=== PATIENT | male | born 1950 | race Caucasian/White ===

== ENCOUNTER 2018-07-21 11:31 | Inpatient (IN) ==
[2018-07-21] MEDS: NS 1,000 ML IV SCH (14:30)
[2018-07-21] MEDS: PROTONIX IV SCH (14:30)
[2018-07-21 14:49] LABS: INR 0.94; PROTIME 13.4 Seconds (11.0-16.0)
--- NOTE | 2018-07-21 14:49 | Diag Imaging Result Doc PS360 ---
EXAM: CHEST-2 VIEWS 07/21/2018 HISTORY: SOB TECHNIQUE: PA and lateral chest COMMENT: There is ill-defined opacity in the medial anterior left upper lobe. The heart size is slightly enlarged and the pulmonary vascularity is prominent. Compared to the previous study of 10/02/2014 this was not present previously. This is very suspicious for a central neoplasm with postobstructive pneumonia/pneumonitis. Further evaluation is recommended. IMPRESSION: Perihilar left upper lobe mass. Electronically signed by Oumar Aj 07/21/2018 2:46 PM
[2018-07-21 15:21] LABS: FREE T4 1.28 ng/dL (0.93-1.70)
--- NOTE | 2018-07-21 15:31 | EKG Report ---
Test Performed on : 07/21/2018 2:03:25 PM Test Reason : fast heart rate Blood Pressure : / mmHG Vent. Rate : 106 BPM Atrial Rate : 106 BPM P-R Int : 176 ms QRS Dur : 078 ms QT Int : 306 ms P-R-T Axes : 040 016 065 degrees QTc Int : 406 ms Sinus tachycardia. with occasional premature ventricular complexes. Otherwise normal ECG When compared with ECG of 03-OCT-2014 06:28, premature ventricular complexes. are now present Confirmed by Aki BILLY, Jamey ([id number]) on 07/21/2018 6:07:29 PM
[2018-07-21 15:47] LABS: HEMATOCRIT 35.7 % (42.0-52.0); HEMOGLOBIN 11.5 g/dL (14.0-18.0); MCH 29.5 PG (27-31); MCHC 32.2 g/dL (33-37); MCV 91.5 FL (81-99); MPV 9.5 FL (7.4-10.4); RBC 3.9 XMIL (4.7-6.1); RDW 14.7 % (11.5-14.5); WBC 10.65 X1000 (4.8-10.8)
[2018-07-21 15:51] LABS: ALB/GLOB RATIO 0.7; ALBUMIN 2.8 g/dL (3.5-5.0); CALCIUM 8.6 mg/dL (8.8-10.2); CREATININE 1.6 mg/dL (0.7-1.2); MAGNESIUM 1.9 mg/dL (1.5-2.7); POTASSIUM 5.6 mmol/L (3.5-5.1); TOTAL BILIRUBIN 0.24 mg/dL (0.20-1.00); TOTAL PROTEIN 6.8 g/dL (6.3-8.3); URIC ACID 9.4 mg/dL (3.4-7.0)
[2018-07-21] MEDS ORDERED: PROTONIX IV SCH (18:30)
[2018-07-21] MEDS ORDERED: SODIUM CHLORIDE 0.9% INJ SCH (18:30)
[2018-07-21] MEDS ORDERED: LOPRESSOR IV PRN (18:49)
--- NOTE | 2018-07-21 19:54 | Diag Imaging Result Doc PS360 ---
EXAM: CT THORAX W/O CONTRAST - 07/21/2018 HISTORY: lung mass TECHNIQUE: CT thorax without contrast. No contrast administered per request the referring provider. COMPARISON: Prior chest radiographs of 07/21/2018 FINDINGS: There is some limitation of detail due to the lack of administered intravenous contrast. There is a large mass which extends from the left hilum anteriorly and superiorly along the medial left upper lobe. This appears to directly invade the mediastinum. The mass measures 11.7 cm in AP dimension and varies in transverse dimension of two 5 cm. There is additional ill-defined infiltration versus postobstructive infiltrate at the left upper lobe. The mass also extends to the anterior medial pleural margin of the left upper lobe. In addition to the apparent direct mediastinal invasion, there are some small mediastinal lymph nodes. There there are emphysematous changes. The right lung appears clear except for mild dependent atelectasis. There is no substantial pleural effusion identified. There is no pneumothorax identified. Included sections of the upper abdomen show multiple small calcified gallstones in the gallbladder. There are atherosclerotic calcifications noted. There is soft tissue fullness at the left paraspinal region from T12-L1 to L1-2. While there is no associated bony destruction identified, the possibility of metastatic disease, which could invade the left side of the spinal canal, cannot be excluded. IMPRESSION: Large mass which extends from the left hilum anteriorly and superiorly along the medial left upper lobe. The mass appears to directly right mediastinum. There are some additional ill-defined infiltration or postobstructive infiltrate in the left upper lobe. These findings are highly suspicious for malignancy. Soft tissue fullness at left paraspinal region from T12-L1 through L1-2. The possibility of metastatic disease, which could invade the left side of the spinal canal, cannot be excluded. If further imaging evaluation is desired, MRI is recommended. This exam was performed using automated exposure control, adjustment of mA or kV according to patient size, and/or use of iterative reconstruction technique. Electronically signed by Tan Cannon 07/21/2018 7:52 PM
[2018-07-21] MEDS: ZOFRAN IV PRN (20:40)
[2018-07-21] MEDS: DILAUDID IV PRN (20:40)
[2018-07-21] MEDS: LOVENOX SUBQ SCH (20:43)
--- NOTE | 2018-07-21 22:20 | HISTORY AND PHYSICAL ---
CHIEF COMPLAINT: 1. Back pain. Not able to ambulate. 2. Weight loss. 3. Dehydration. HISTORY OF PRESENT ILLNESS: He is a a 67-year-old white male basically complaining for the last 2 months, back pain going to the groin, left. It is not worse with cough. X-rays lumbar spine were negative. He has peripheral arterial disease. He was placed on Pletal. In the meantime, patient was brought in and continues to deteriorate, dehydrated, not eating, significant weight loss. The patient denies of any cough, no headaches. Yesterday patient was very tachycardic. Denies of any chest pain. EKG showed sinus tach, nothing acute. Occasional PVCs. He was not able to getting out of the examination table, requiring assistance. He was very feeble. I decided to be admitted to the hospital yesterday. Apparently, there were no beds available. Family was given the options to go to [facility]. Were told the patient goes home when the bed is available, will call him for an admission. The patient came to the emergency room at 11 o'clock. He was still in the ER to be admitted. Unfortunately, he was in lot of pain. Tachycardic. He was given some IV pain medicine. Creatinine 1.6. Chest x-ray was abnormal with left hilar mass. Results discussed with the patient . Needs a further workup. For all these reasons, he has been hospitalized. Again, repeated questioning patient denies of any chest pain or shortness of breath or cough. PAST MEDICAL HISTORY: History of gallstones, chronic renal failure, diverticulosis, type 2 diabetes, hypertension, gout, hemorrhoids, sleep apnea, psoriatic rash, varicose veins in both legs, vitamin D deficiency. PAST SURGICAL HISTORY: Right hip replacement. MEDICINES: Aspirin, amlodipine 10 daily, Pletal 50 p.o. b.i.d. and Vasotec 20 mg p.o. b.i.d., vitamin D 50,000 units once a week. ALLERGIES: Reported here sulfa drugs. SOCIAL HISTORY: Is . Please go back and type. , for 2 children. Lives in [place]. Drinking alcohol on a daily basis. Smokes 2 packs a day for 40 years. FAMILY HISTORY: Father at the age of 78, lung cancer. Mom of dementia at 72. HEALTH MAINTENANCE: Declined flu shots, pneumococcal 2014, tetanus 2004, shingles 2013. Last prostate exam April 2018, colonoscopy [address] Carrion. REVIEW OF SYSTEMS: HEENT: No headache, no vision problems. No earache. No sore throat. Chest: No chest pain or shortness of breath. No palpitations. No cough. Gastrointestinal: Lack of appetite, weight loss with back pain going to the groin on the left side. Not able to walk. Claudication symptoms, decreased pulses and no weakness. Neurologic: No focal symptoms, headaches, seizures. PHYSICAL EXAMINATION: VITAL SIGNS: Temp is 98, tachycardic. Blood pressure 1/47/93. 5 feet 6 inches, 170 pounds. HEENT: Atraumatic, normocephalic. Pupils equal, react to light. NECK: Supple, no lymphadenopathy. CHEST: Poor air entry, tachycardic. ABDOMEN: Belly is soft, nontender. Good bowel sounds. Normal prostate. Heme- negative stool. He has chronic venous stasis changes in both legs. No obvious neurological deficits noted. LABS: CBC: White cell count 10, hematocrit 35, platelets 312,000. Sedimentation rate 45. PT/INR is normal. SMA-7: Sodium 130, potassium 5.6, chloride 100, BUN 30, creatinine 1.6, uric acid 9.4. LFTs slightly high. ProBNP 311. CEA level is high. B12, free T4 is normal. Chest x-ray, suspicious perihilar left upper lobe mass. The EKG is sinus tachycardia. ASSESSMENT AND PLAN: A 67-year-old white male admitted to the hospital with lack of appetite, weight loss associated with dehydration, deconditioning, tachycardic, and left- sided back pain going to the groin for the last few months. Previous x-rays were negative. 1. Dehydration. IV fluids. 2. Pain control, with Dilaudid. 3. Abnormal chest x-ray, left hilar mass. CT of the chest. Follow up on CEA that is high. 4. DVT/GI prophylaxis with Protonix and Lovenox respectively. 5. Insomnia, on Ambien. 6. Based on the CT, further recommendations will be followed. I did discuss with patient's based on the CT, will follow up on the further recommendations. cc: Henry Robertson MD [facility] LONG ISLANDAlphonso
[2018-07-21] MEDS: ULTRACET 37.5MG/325MG PO SCH (22:57)
[2018-07-22] MEDS: NS 1,000 ML IV SCH ×2 (02:54→14:58)
[2018-07-22] MEDS: DILAUDID IV PRN ×5 (05:50→20:57)
[2018-07-22 06:19] LABS: ALLEN TEST YES; BE -7.6 mmoll (-3.0-3.0); BLOOD TYPE ARTERIAL; HCO3-(ACT) 18.8 mmoll (20.0-26.0); METHB 1.5 % (0.0-1.5); O2(CT) 13.3 mL/dL (15.0-23.0); PCO2(98.6) 37 mmHg (35-45); PO2(98.6) 58 mmHg (60-100); SAMPLE BLOOD; SAO2 92.1 % (95.0-100.0); THB 10.6 g/dL (11.5-17.4)
[2018-07-22 06:21] LABS: MODALITY CANNULA; O2HB 89.3 % (95.0-99.0)
[2018-07-22 08:01] LABS: CALCIUM 8.1 mg/dL (8.8-10.2); CREATININE 1.3 mg/dL (0.7-1.2); POTASSIUM 5.9 mmol/L (3.5-5.1)
--- NOTE | 2018-07-22 08:49 | EKG Report ---
Test Performed on : 07/21/2018 6:04:48 PM Test Reason : ED. NO EKG ORDER FOR MUSE Blood Pressure : / mmHG Vent. Rate : 138 BPM Atrial Rate : 138 BPM P-R Int : 128 ms QRS Dur : 072 ms QT Int : 256 ms P-R-T Axes : 038 014 063 degrees QTc Int : 387 ms Sinus tachycardia. with premature atrial complexes. Otherwise normal ECG When compared with ECG of 21-JUL-2018 14:03, (Unconfirmed) premature ventricular complexes. are no longer present premature atrial complexes. are now present Unconfirmed Result
[2018-07-22] MEDS: ULTRACET 37.5MG/325MG PO SCH ×2 (08:54→20:59)
--- NOTE | 2018-07-22 12:48 | Diag Imaging Result Doc PS360 ---
EXAM: MRI BRAIN W/O CONTRAST 07/22/2018 HISTORY: Lung mass TECHNIQUE: T1 sagittal and axial, T2, FLAIR, DWI axial and coronal gradient echo. COMMENT: There are patchy areas of increased T2-weighted signal intensity in the periventricular white matter of both hemispheres. There is no evidence of bleed or abnormal extra-axial fluid collection. There is some artifact due to the patient's dental work. There is no evidence of restricted diffusion. No evidence of mass effect is present. IMPRESSION: Chronic ischemic microvascular changes. No definite evidence of metastatic disease. The sensitivity for such is diminished due to the lack of contrast however. Electronically signed by Oumar Aj 07/22/2018 12:46 PM
--- NOTE | 2018-07-22 12:59 | Diag Imaging Result Doc PS360 ---
EXAM: MRI THORACIC SPINE W/O CON 07/22/2018 HISTORY: Lung mass TECHNIQUE: T1-T2 and STIR sagittal, T1 and T2 axial. COMMENT: There is abnormal decreased T1-weighted signal intensity in C2 and the majority of the C1 arch. This involves the posterior elements of C2 as well. These findings are demonstrated on the sagittal images from the MRI of the brain performed today. The localizer sagittal image also demonstrates this abnormality. In addition, there is decreased T1-weighted signal intensity in the vertebral bodies of T3 on the left, the posterior T7 vertebral body, the upper endplate of T8 slightly on the left, the left side of T10, the right pedicle of T11, the anterior superior and right side of T12, and the entire L1 vertebral body including both pedicles and portions of the lamina. At the latter level there is some epidural mass which is not well demonstrated on the axial images. No definite intramedullary signal abnormalities are present. The possibility of compression or infiltration of the area of the cauda equina cannot be excluded. This will be further discussed with the lumbar spine examination. IMPRESSION: Numerous metastatic lesions in the cervical and thoracic spine as described above. Electronically signed by Oumar Aj 07/22/2018 12:57 PM
--- NOTE | 2018-07-22 13:06 | Diag Imaging Result Doc PS360 ---
EXAM: MRI LUMBAR SPINE W/O CONTRAST 07/22/2018 HISTORY: back pain TECHNIQUE: T1-T2 and STIR sagittal, T1 and T2 axial. COMMENT: There is abnormal decreased T1-weighted signal intensity throughout L1 including the posterior elements. This extends into the perivertebral soft tissues including the epidural space. The latter appears to compress the nerve roots exiting from the foramina as well as compressing the thecal sac on both sides. There is a small focus of decreased signal intensity in the superior posterior L2 vertebral body, in the upper endplate of L3, and large portions of the L5 vertebral body particularly on the left side also involving the left pedicle and posterior elements. At the L5 level there is also soft tissue component on the left side with epidural extension anteriorly. There are also extensive areas of metastatic disease in the sacrum and iliac bones adjacent to the sacroiliac joints. There appears to be some invasion of the caudal sacral canal. IMPRESSION: Extensive metastatic disease, particularly at L1 where there is compression of the thecal sac due to epidural disease. Electronically signed by Oumar Aj 07/22/2018 1:03 PM
[2018-07-22] MEDS: SODIUM CHLORIDE 0.9% INJ SCH (14:52)
[2018-07-22] MEDS: PROTONIX IV SCH (14:52)
--- NOTE | 2018-07-22 16:43 | PROGRESS NOTE ---
DATE: 07/22/2018 SUBJECT: Finally patient got a bed and still tachycardic. No chest pain. Complains of intractable back pain going to the groin for the last few weeks. He also lost appetite, weight loss. I did review the CT of the chest with Dr. Aj. He can able to get the biopsy on Wednesday. The patient has been scheduled for MRI of the brain, thoracic spine and L-spine. EXAM: Temperature is 98 degrees, pulse is 100. He is on 90% on room air on 2 L.HEENT: Within normal limits. Neck: Supple. Scattered wheezing. Heart: Sounds are regular. Belly: Is soft, nontender. No obvious deficits noted. LABS: ABG, pH is 7.30, pCO2 37, PO2 58 on 28%. SMA 7 sodium 139, potassium 5.9, chloride 105, BUN 26, creatinine 1.3, elevated CEA level. ASSESSMENT: 1. Intractable back pain due to L1 lesion epidura mass pressing by MRI of lumbar spine. 2. Left upper lobe mass suspicious for malignancy. Elevated CEA. 3. Dehydration on intravenous fluids. 4. Multiple metastatic disease in thoracic spine. 5. MRI of the brain is negative. PLAN: 1. IV fluids. 2. IV Decadron. 3. Tissue diagnosis will schedule on Wednesday morning by radiologist anteriorly. 4. DVT, GI prophylaxis and Ambien for sleeping and I am going to discuss with his and then continue present treatment. LEVEL OF DOCUMENTATION: 25 minutes. cc: Henry Robertson MD MTDD
[2018-07-22] MEDS: DECADRON IV SCH (17:25)
[2018-07-22] MEDS: LOVENOX SUBQ SCH (17:29)
[2018-07-23] MEDS: DILAUDID IV PRN ×2 (01:05→20:03)
[2018-07-23] MEDS: DECADRON IV SCH ×3 (01:05→16:35)
[2018-07-23] MEDS: AMBIEN PO PRN (01:13)
[2018-07-23] MEDS: NS 1,000 ML IV SCH ×3 (04:19→16:36)
[2018-07-23] MEDS: ULTRACET 37.5MG/325MG PO SCH ×2 (09:52→19:53)
[2018-07-23] MEDS ORDERED: KAYEXALATE PO ONE (10:57)
--- NOTE | 2018-07-23 11:48 | PROGRESS NOTE ---
DATE: 07/23/2018 SUBJECTIVE: The patient states he is feeling reasonably well. Denies particular pain presently. Objective: Vital Signs: Afebrile. Vital signs stable. CV: RRR. Lungs: Distant breath sounds CTA. Abdomen: Soft, nontender. Extremities: Mild prominence to the right calf area. No definite cord. Left lower extremity with no edema. Neurologic: Cranial nerves are intact. No focal deficits X-RAYS: Reviewed copies of the MRI of the LS-spine, T-spine revealing cervical, thoracic, and lumbar metastasis. Also, CT chest reveals left hilar mass, large, with plans for biopsy per Radiology on 07/25/2018. ASSESSMENT: 1. Intractable lumbar back pain, improved overall. 2. Left upper lung mass, likely lung carcinoma with metastasis to the spine. 3. Dehydration. 4. Hyperkalemia. 5. Diverticulosis. 6. Hypertension. PLAN: Due to hyperkalemia, we will stop the TERESO inhibitor in the form of Vasotec. Continue Norvasc. Lopressor has been ordered as needed. Continue low-dose IV fluids of course without potassium. We will give him 1 dose of Kayexalate. We will continue low IV hydration. Leave him off the Pletal, but continue his Norvasc, vitamin D. Continue to monitor renal function closely. He is on prophylactic dose of Lovenox and will continue that. Await biopsy of lung mass in 2 days. cc: MD Henry Grady MD
[2018-07-23] MEDS ORDERED: ENALAPRIL MALEATE 20 MG PO SCH (13:00)
[2018-07-23] MEDS: SODIUM CHLORIDE 0.9% INJ SCH (13:57)
[2018-07-23] MEDS: PROTONIX IV SCH (13:57)
[2018-07-23] MEDS: LOVENOX SUBQ SCH (18:11)
[2018-07-24] MEDS: ULTRACET 37.5MG/325MG PO SCH ×3 (01:26→20:29)
[2018-07-24] MEDS: DECADRON IV SCH ×4 (02:15→22:07)
[2018-07-24] MEDS: DILAUDID IV PRN ×5 (02:15→22:06)
[2018-07-24 07:42] LABS: HEMATOCRIT 31.2 % (42.0-52.0); HEMOGLOBIN 9.8 g/dL (14.0-18.0); IMM GRAN# 0.06 X1000 (0.0-0.04); IMM GRAN% 0.6 % (0.0-0.5); LYMPH# 0.28 X1000 (1.2-3.4); LYMPH% 2.6 % (20.5-51.1); MCH 29.3 PG (27-31); MCHC 31.4 g/dL (33-37); MCV 93.4 FL (81-99); MONO# 1.16 X1000 (0.11-0.59); MPV 9.1 FL (7.4-10.4); NEUT# 9.07 X1000 (1.4-6.5); NEUT% 85.8 % (42.2-75.2); PLT 276 X1000 (130-400); RBC 3.34 XMIL (4.7-6.1); RDW 14.5 % (11.5-14.5); WBC 10.57 X1000 (4.8-10.8)
[2018-07-24 07:49] LABS: CALCIUM 8.5 mg/dL (8.8-10.2); CREATININE 1.4 mg/dL (0.7-1.2)
[2018-07-24 07:53] LABS: POTASSIUM 5.1 mmol/L (3.5-5.1)
[2018-07-24 08:31] LABS: BANDS 2 % (0-1); LYMPHS 6 % (21-51); MONO 2 % (1-9); SEGS 90 % (42-75)
[2018-07-24] MEDS: NORVASC PO SCH (08:40)
[2018-07-24] MEDS ORDERED: DULCOLAX PR PRN (10:59)
--- NOTE | 2018-07-24 11:14 | PROGRESS NOTE ---
DATE: 07/24/2018 SUBJECTIVE: Patient remains stable. Pain is controlled with some Dilaudid. He is having some constipation. OBJECTIVE: Afebrile, pulse 97, respirations 18, blood pressure 159/80, O2 saturation on 2 L is 98%. CV: RRR. Lungs: Distant breath sounds. CTA. Abdomen: Soft. Active bowel sounds. Mild distention. No point tenderness. Extremities: Mild tenderness along the right calf. No major lower extremity edema. Neurologic: Nonfocal. Cranial nerves are intact. Sodium 139, potassium down from 5.9 yesterday to 5.1 after Kayexalate, BUN 35, creatinine 1.4. White count 10.5, hemoglobin 9.8, platelets 276,000. ASSESSMENT: 1. Intractable lumbar pain with findings on MRI suspicious for metastasis. 2. Left upper lung mass, rule out lung cancer with metastasis to the spine. 3. Dehydration, improved. 4. Hyperkalemia, improved. 5. Diverticulosis. 6. Hypertension, off TERESO inhibitor due to hyperkalemia. 7. Constipation, likely related to the pain medications. PLAN: We will add laxative daily. Continue Norvasc. Continue low-dose IV fluids. Monitor potassium off the TERESO inhibitor. Hold the Lovenox presently as he has CT-guided biopsies planned for tomorrow and he is off his Pletal currently. We will check a venous Doppler of the right lower extremity tomorrow as well. He remains on IV steroids and he is receiving pain control with Dilaudid and Ultram as required. cc: MD Henry Grady MD
[2018-07-24] MEDS: NS 1,000 ML IV SCH (12:10)
[2018-07-24] MEDS: MIRALAX PO SCH ×2 (12:10→22:06)
[2018-07-24] MEDS: SODIUM CHLORIDE 0.9% INJ SCH (13:47)
[2018-07-24] MEDS: PROTONIX IV SCH (13:47)
[2018-07-24] MEDS: ZOFRAN IV PRN (13:53)
[2018-07-24] MEDS: AMBIEN PO PRN (22:06)
[2018-07-25] MEDS: DECADRON IV SCH ×3 (04:22→18:17)
[2018-07-25 07:41] LABS: INR 0.97; PROTIME 13.6 Seconds (11.0-16.0)
[2018-07-25] MEDS: DILAUDID IV PRN ×3 (08:45→21:18)
--- NOTE | 2018-07-25 10:58 | Diag Imaging Result Doc PS360 ---
CHEST-2 VIEWS - 07/25/2018 INDICATION: POST BIOPSY LEFT LUNG COMPARISON: 07/21/2018 FINDINGS: There is no visible pneumothorax. IMPRESSION: No pneumothorax. Electronically signed by Tanvir Olvera 07/25/2018 10:55 AM
[2018-07-25] MEDS: NORVASC PO SCH (11:34)
[2018-07-25] MEDS: MIRALAX PO SCH (11:34)
[2018-07-25] MEDS: VITAMIN D PO SCH (11:34)
[2018-07-25] MEDS: ULTRACET 37.5MG/325MG PO SCH (11:36)
[2018-07-25] MEDS ORDERED: CALMOSEPTINE OINTMENT TOP PRN (11:57)
[2018-07-25] MEDS: PROTONIX IV SCH (14:23)
--- NOTE | 2018-07-25 15:03 | Diag Imaging Result Doc PS360 ---
CHEST-2 VIEWS - 07/25/2018 2:51 PM INDICATION: S/P CT guided left lung biopsy COMPARISON: 10:55 AM FINDINGS: There is no pneumothorax. IMPRESSION: No pneumothorax. Electronically signed by Tanvir Olvera 07/25/2018 3:01 PM
--- NOTE | 2018-07-25 15:37 | Diag Imaging Result Doc PS360 ---
CT GUIDED BIOPSY LUNG - 07/25/2018 INDICATION: Left lung upper lobe mass. TECHNIQUE: The risks and benefits of the procedure were discussed with the patient. All questions were answered. Written and verbal informed consent was obtained. Overlying skin was prepped and draped in sterile fashion. Anesthesia was achieved with injection of 10 cc of 1% lidocaine. COMPARISON: 07/21/2017 FINDINGS: The left upper lobe opacification was biopsied anteriorly. Six biopsy specimens were obtained. The needles were withdrawn intact. The patient reported no symptoms from the procedure. Postprocedural chest x-rays were unremarkable. IMPRESSION: Successful and uncomplicated CT-guided biopsy of opacified left upper lobe. Electronically signed by Tanvir Olvera 07/25/2018 3:34 PM
[2018-07-25] MEDS: NS 1,000 ML IV SCH (18:19)
--- NOTE | 2018-07-25 21:20 | PROGRESS NOTE ---
DATE: 07/25/2018 SUBJECTIVE: This morning, the patient has had difficulty getting IV access and waiting for biopsy. I discussed with Dr. Marin his plan to do CT-guided biopsy. Family was at bedside. He complains of constipation. Eating well. Pain is better and no obvious weakness. OBJECTIVE: Vital Signs: Temperature is 97 degrees, pulse is 95, blood pressure is 132/84. HEENT: Within normal limits. Neck: Supple. Chest: Bilateral air entry. Heart: Sounds are regular, tachycardic. Abdomen: Belly is soft, nontender. Extremities: Chronic venous stasis changes noted in both legs. Neurologic: No obvious deficits noted. INVESTIGATIONS: INR is normal, not reported. ASSESSMENT AND PLAN: 1. Poor intravenous access. Will attempt intravenous access for pain control and intravenous steroids. 2. If intravenous access is problematic, consider Port-A-Cath or peripherally inserted central catheter line. 3. Repeat the labs, CBC and CMP, in the morning. 4. Follow up on the biopsies CT-guided this morning. 5. Deep vein thrombosis prophylaxis. 6. Constipation, MiraLAX. 7. Continue intravenous steroids. 8. I have seen the patient twice; came back in the evening. Biopsy was done. No complications. I am going to discuss with Dr. Patino for a tissue diagnosis. 9. L1 lesion, needs further treatment besides intravenous steroids. Also consult oncologist on- call and consider physical therapy consult for ambulation. LEVEL OF DOCUMENTATION: 35 minutes. cc: Henry Robertson MD
[2018-07-26] MEDS: ULTRACET 37.5MG/325MG PO SCH ×3 (00:02→22:13)
[2018-07-26] MEDS: MIRALAX PO SCH ×3 (00:03→22:11)
[2018-07-26] MEDS: DILAUDID IV PRN ×4 (00:18→22:19)
[2018-07-26] MEDS: AMBIEN PO PRN (00:19)
[2018-07-26] MEDS: DECADRON IV SCH ×3 (00:38→18:02)
[2018-07-26 07:51] LABS: HEMATOCRIT 34.2 % (42.0-52.0); IMM GRAN# 0.07 X1000 (0.0-0.04); IMM GRAN% 0.7 % (0.0-0.5); LYMPH# 0.42 X1000 (1.2-3.4); MCH 29.5 PG (27-31); MCHC 32.2 g/dL (33-37); MCV 91.7 FL (81-99); MONO# 1.07 X1000 (0.11-0.59); MONO% 10.2 % (1.7-9.3); MPV 9.1 FL (7.4-10.4); NEUT# 8.88 X1000 (1.4-6.5); NEUT% 85.1 % (42.2-75.2); PLT 312 X1000 (130-400); RBC 3.73 XMIL (4.7-6.1); RDW 14.3 % (11.5-14.5); WBC 10.44 X1000 (4.8-10.8)
[2018-07-26 08:19] LABS: AGAP 8; BUN 37 mg/dL (8-22); CALCIUM 8.4 mg/dL (8.8-10.2); CHLORIDE 103 mmol/L (98-107); COSMO 282; CREATININE 1.1 mg/dL (0.7-1.2); ESTIMATED GFR > 60; GLUCOSE 121 mg/dL (70-104); POTASSIUM 5.1 mmol/L (3.5-5.1); SODIUM 136 mmol/L (136-145); TCO2 25 mmol/L (25-35)
[2018-07-26 08:37] LABS: BANDS 2 % (0-1); LYMPHS 2 % (21-51); MONO 4 % (1-9); SEGS 88 % (42-75)
[2018-07-26] MEDS: LOVENOX SUBQ SCH (09:39)
[2018-07-26] MEDS: NORVASC PO SCH (09:39)
--- NOTE | 2018-07-26 12:21 | HEMO/ONC CONSULTATION ---
DATE: 07/26/2018 CHIEF COMPLAINT: We were consulted for further evaluation and management of patient's new lung mass. HISTORY OF PRESENT ILLNESS: Mr. De La Cruz is a 67-year-old male who was admitted after having increased amounts of back pain over the past couple of months. The pain can continue to increase. The patient finally got to the point where he was having trouble getting up and moving around. He had a significant weight loss, not eating well, very dehydrated. The patient denies any coughs. No headaches. The patient had a chest x-ray did show an abnormal left hilar mass. The patient also had a CT of the chest that showed a large mass that extends from the left hilum anteriorly and superomedially on the medial left upper lobe. The patient also had some MRIs of the spine that showed likely metastasis at that time. Brain MRI did not show any metastatic disease at this time. The patient did undergo a CT-guided lung biopsy on 07/25/2018, awaiting pathology results at this time. PAST MEDICAL HISTORY: Gallstones, diverticulosis, type 2 diabetes mellitus, hypertension, gout, hemorrhoids, sleep apnea, psoriatic rash, varicose veins in both legs and vitamin D deficiency. PAST SURGICAL HISTORY: Right hip replacement. SOCIAL HISTORY: Smokes 2 packs a day for the past 40 years. Drinks alcohol on occasion. Denies any illicit drug use. FAMILY HISTORY: Lung cancer, dementia. ALLERGIES: Sulfa drugs. HOME MEDICATIONS: Aspirin, amlodipine, Pletal, Vasotec, vitamin D. REVIEW OF SYSTEMS: Negative unless mentioned in HPI. PHYSICAL EXAMINATION: Vital Signs: Temperature 97.6 degrees, heart rate 101, respiratory rate 18, blood pressure 163/92, saturating 93% on nasal cannula. General: Patient is awake, lying in bed, no acute distress noted. HEENT: Anicteric. Pupils PERRLA. Mucous membranes and moist. Neck: Supple. Trachea midline. No JVD. Lymph node survey: No palpable lymphadenopathy. Chest: Bilateral breath sounds diminished bilaterally. Cardiovascular: S1, S2. Increased rate and rhythm. Abdomen: Soft, nontender. Bowel sounds present in all 4 quadrants. Skin: Warm, dry, and intact. No petechiae, no clubbing, no rashes, cyanosis. Neurologic: Alert and oriented x3. No focal deficits noted. LABORATORY DATA: White cell count 10.44, hemoglobin 10.2, hematocrit 34.2, platelets are 312,000. Potassium 5.1, BUN 37, creatinine 1.1. CEA was 10. RADIOLOGY RESULTS: CTA chest showed a large mass which extends from the left hilum anteriorly and superiorly on the medial left upper lobe. The mass appears to drape the right mediastinum. There is some additional ill-defined infiltration for postobstructive infiltrate in the left upper lobe since the findings are highly suspicious for malignancy. Brain MRI showed chronic ischemic microvascular changes noted. No definite evidence of metastatic disease. Lumbar spine MRI shows extensive metastatic disease particularly at L1 where with compression of the thecal sac due to epidural disease. Thoracic spine MRI shows numerous metastatic lesions of the thoracic spine. ASSESSMENT AND PLAN: 1. Metastatic lung mass: Pathology results pending at this time. Patient underwent CT-guided lung biopsy yesterday. Plan is to get pathology results we will make further recommendations. At this time, continue to monitor. Also consult Dr. Ferraro. 2. Dehydration: Improving. Continue management per medical team. 3. Deep venous thrombosis prophylaxis: Continue Lovenox daily as ordered. 4. Supportive care: Continue to have patient get out of bed as much as possible. 5. Protein shakes 3 times a day. Dictated by SAEID Godoy for Nikos Dukes MD Patient seen and examined. As above. Patient with metastatic non-small cell carcinoma. I discussed his disease status and prognosis. I will consult radiation oncology for a spinal metastasis with epidural involvement. He is somewhat reluctant to therapy. He understands that his is causing his numbness in his right foot. Currently he does not have bowel or bladder symptoms. After that we will plan further management accordingly. Nikos Dukes M.D. cc: MD Henry Fonseca MD [facility]
--- NOTE | 2018-07-26 14:36 | Extremity Venous Study ---
PROCEDURE NAME: Venous U/S Right Leg - 07/25/2018 REQUESTING PHYSICIAN: Dr. Sheriff. OIL WELL SHOOTER: Dima. INDICATIONS: Pain. EQUIPMENT: [employer] Vivid E9 ultrasound system with a 9 L-D transducer. FINDINGS: Images of the right lower extremity venous system with comparison shot of the left common femoral vein were obtained in both sagittal and transverse planes. Doppler was used to evaluate veins for spontaneity, phasicity, respiratory excursion, and digital augmentation. RESULTS: Normal venous compression and normal venous flow. No obvious superficial or deep venous thrombosis noted. cc: MD Milton Diop MD Jagan Reddy, MD
[2018-07-26] MEDS: PROTONIX IV SCH (14:41)
[2018-07-26] MEDS ORDERED: TUMS PO PRN (19:38)
--- NOTE | 2018-07-26 21:40 | PROGRESS NOTE ---
DATE: 07/26/2018 SUBJECTIVE: The patient is out of the bed and eating better. No bowel movement. No complaints. REVIEW OF SYSTEMS: Some weakness in the right leg. OBJECTIVE: Vital signs: Temperature is 97.6, pulse is 94, blood pressure is 140/85. HEENT Exam: Within normal limits. Chest: Bilateral air entry. Cardiovascular: Heart sounds are tachycardic. Abdomen: Belly is soft, nontender. Extremities: Chronic venous stasis changes noted. INVESTIGATIONS: White cell count 10.4, hematocrit 34, platelets 312,000. BMP: Sodium 136, potassium 5.1, chloride 103, BUN 37, creatinine 1.1. ASSESSMENT AND PLAN: 1. Biopsy reported came back non-small cell lung cancer, presumed to be adenocarcinoma, primary lung. 2. Metastatic disease at L1. 3. Back pain with weakness in the legs, probably due to metastatic disease. PLAN: 1. IV Decadron. 2. Consult with Dr. Dukes. 3. Consult with Dr. Orlando for port tomorrow. 4. I spoke to the patient as well as the . They are agreeable for Port-A-Cath and radiation therapy. I will communicate with Dr. Dukes, and he is not interested in chemotherapy at this time. I think he needs further workup. 5. Continue pain management as described. 6. Hypertension on amlodipine 10 daily and metoprolol as needed. 7. Deep venous thrombosis and gastrointestinal prophylaxis as directed and Ambien for sleep. LEVEL OF DOCUMENTATION: 25 minutes. cc: Henry Robertson MD
[2018-07-26] MEDS: NS 1,000 ML IV SCH (22:24)
[2018-07-27] MEDS: AMBIEN PO PRN ×2 (01:16→23:49)
[2018-07-27] MEDS: DECADRON IV SCH ×3 (01:16→16:38)
[2018-07-27] MEDS: DILAUDID IV PRN ×4 (06:18→23:33)
--- NOTE | 2018-07-27 06:52 | GENERAL SURGERY CONSULTATION ---
DATE: 07/27/2018 CHIEF COMPLAINT: Metastatic lung cancer. HISTORY: This is a 67-year-old gentleman with fairly severe back pain who has been worked up and found to have a left hilar lung mass. Biopsy proven to be non-small cell carcinoma. He also has evidence of skeletal metastases. I have been asked to place a port for IV access. He is anticipating radiation to his skeletal mets and possibly his lung. PAST MEDICAL HISTORY: His other medical problems include chronic renal insufficiency, diverticulosis, type 2 diabetes, hypertension, sleep apnea, venous insufficiency. PAST SURGICAL HISTORY: Previous surgery includes right hip replacement. MEDICATIONS INCLUDE: Aspirin, amlodipine, Pletal, Vasotec, and vitamin D. ALLERGIES: He is allergic to sulfa. SOCIAL HISTORY: He is . Drinks alcohol daily. Smokes 2 packs a day. FAMILY HISTORY: Pertinent for lung cancer and dementia. REVIEW OF SYSTEMS: Primarily positive for back pain. EXAMINATION: Vital signs: He is afebrile, heart rate 91, blood pressure 138/79. Lungs: Bilateral breath sounds. Heart: Regular rate and rhythm. No clavicular distortion. Abdomen: Soft. He has chronic venous stasis changes of his lower legs. Neurologic: He is awake and alert. Skin: Rash is noted. ASSESSMENT: Metastatic lung cancer. PLAN: Right-sided port. I have discussed the plan with him. He understands and agrees to proceed. cc: MD Henry Meeks MD
[2018-07-27] MEDS: ULTRACET 37.5MG/325MG PO SCH ×2 (10:04→23:51)
--- NOTE | 2018-07-27 11:49 | HEMO/ONC PROGRESS NOTE ---
DATE: 07/27/2018 SUBJECTIVE: The patient continues to have increased amounts of pain to his back. The patient says he slightly feels better, though. The patient continues to have some weakness and numbness to the right leg. No other new complaints at this time. OBJECTIVE: Vital Signs: Temperature 98.1 degrees, heart rate 71, respiratory rate 18, blood pressure 114/65, saturating 95% on nasal cannula. General: Patient is awake, lying in bed, no acute distress noted. HEENT: Anicteric. Pupils: PERRLA. Mucous membrane moist. Cardiovascular: S1, S2. Regular rate and rhythm. Chest: Bilateral breath sounds clear to auscultation. Abdomen: Soft, nontender. Bowel sounds present in all 4 quadrants. Neurologic: Alert and oriented x3. No focal deficits noted. LABORATORY DATA: White blood cell count 10.44, hemoglobin 11.0, hematocrit 34.2, platelets are 312. Potassium 5.1, BUN 37, creatinine 1.1, calcium 8.4. ASSESSMENT AND PLAN: 1. Metastatic non-small cell adenocarcinoma of the lung: The patient wanted to discuss further therapy at this time. Dr. Ferraro has been consulted. We will continue to monitor and make further recommendations. 2. Back pain with weakness and numbness to right leg and lower extremity: Dr. Ferraro has been consulted for further evaluation and radiation. The patient was kind of reluctant to do therapy. The patient now willing to discuss possible treatment. Continue to monitor. 3. Dehydration: Improving slowly. Continue management per primary medical team. 4. Deep venous thrombosis prophylaxis: Continue Lovenox daily as ordered. 5. Supportive care: Continue protein shakes 3 times a day. Dictated by SAEID Godoy for Nikos Dukes MD Patient seen and examined. As above. No new complaints. Patient agreeable with radiation at this time. Discussed with Dr. Ferraro. Patient also scheduled for a Port-A-Cath. Plan for PET scan outpatient. Nikos Dukes M.D. cc: MD Henry Fonseca MD MTDD
[2018-07-27] MEDS ORDERED: DIPRIVAN 1% ONE (13:41)
[2018-07-27] MEDS ORDERED: XYLOCAINE-MPF 2% ONE (13:41)
[2018-07-27] MEDS ORDERED: XYLOCAINE 1%/EPI 1:100,000 ONE (14:25)
[2018-07-27] MEDS ORDERED: NS 250 ML ONE (14:26)
[2018-07-27] MEDS ORDERED: KEFZOL 1 GM/D5W 1 GM/50 ML IVPB ONE (14:32)
[2018-07-27] MEDS: KEFZOL 1 GM/D5W 1 GM/50 ML IVPB IV ONE (14:40)
[2018-07-27] MEDS ORDERED: KEFZOL ONE (14:57)
--- NOTE | 2018-07-27 15:44 | OPERATIVE NOTE ---
PROCEDURE DATE: 07/27/2018 PROCEDURE PERFORMED: Right subclavian port placement. SURGEON: Fidel Orlando MD. [employer] SUPERVISOR: VERITO Mario PREOPERATIVE DIAGNOSIS: Metastatic lung cancer. POSTOPERATIVE DIAGNOSIS: Metastatic lung cancer. DESCRIPTION OF PROCEDURE: Satisfactory monitoring anesthesia care was established. IV sedation was accomplished. The right upper anterior chest and neck were prepped and draped in a sterile fashion. We anesthetized the skin with 1% lidocaine with epinephrine in the deltopectoral groove. We incised the skin, developed subcutaneous pocket that would admit the port. We then accessed the right subclavian vein and passed the guidewire under fluoroscopic guidance into the superior vena cava. We then passed the dilator and introducer sheath over the guidewire. We introduced the polyurethane catheter over the wire into the superior vena cava to the junction of the right atrium. We cut the catheter to the appropriate length, passed it on to the stem of the port, and then locked it into position. We placed the port within the pocket. We secured it there with a silk. We passed it through the subcutaneous tissue in the rim of the port. We irrigated out the port with Kefzol-impregnated saline. We then placed 3-0 Polysorb in the subcutaneous tissue. We accessed the port. It aspirated and irrigated easily. We gave the patient 4 mL of Hep-Lock. We then closed the skin with a 4 Polysorb subcuticular stitch. Telfa and sterile OpSite was applied. He tolerated it well. He was sent to the recovery room in satisfactory condition. cc: MD Henry Meeks MD
[2018-07-27] MEDS: PROTONIX IV SCH (16:38)
[2018-07-27] MEDS: NORVASC PO SCH (19:08)
[2018-07-27] MEDS: MIRALAX PO SCH (19:08)
[2018-07-27] MEDS: LOVENOX SUBQ SCH (19:09)
[2018-07-27] MEDS: NS 1,000 ML IV SCH (19:09)
--- NOTE | 2018-07-27 21:02 | PROGRESS NOTE ---
DATE: 07/27/2018 SUBJECTIVE: The patient is doing better. He has agreed for a port as well as radiation therapy. EXAMINATION: Vitals: Stable. HEENT: Within normal limits. Chest: Clear. Heart: Heart sounds are tachycardic. Abdomen: Belly is soft, nontender. No obvious deficits noted. INVESTIGATIONS: Extremity venous study: No DVT noted. Chest x-ray: No pneumothorax. ASSESSMENT AND PLAN: 1. Waiting for port by Dr. Orlando. 2. Metastatic lung cancer. 3. Intravenous steroids, on L1 lesion. 4. I spoke to Dr. Dukes. He is going to communicate with Dr. Ferraro for radiation therapy. 5. Hypertension is stable. 6. Continue Lovenox for DVT prophylaxis. 7. Out of the bed with physical therapy. LEVEL OF DOCUMENTATION: 25 minutes. cc: Henry Robertson MD
[2018-07-28] MEDS: MIRALAX PO SCH ×3 (03:21→20:58)
[2018-07-28] MEDS: DECADRON IV SCH ×3 (03:22→18:39)
[2018-07-28] MEDS: DILAUDID IV PRN ×4 (06:03→20:57)
[2018-07-28] MEDS: NS 1,000 ML IV SCH (06:07)
[2018-07-28] MEDS: LOVENOX SUBQ SCH (08:51)
[2018-07-28] MEDS: NORVASC PO SCH (08:52)
[2018-07-28] MEDS: ULTRACET 37.5MG/325MG PO SCH ×2 (08:52→20:58)
[2018-07-28] MEDS: CLINIMIX E 4.25%-5% SOLUTION 1,000 ML IV SCH (09:01)
--- NOTE | 2018-07-28 10:10 | HEMO/ONC PROGRESS NOTE ---
DATE: 07/28/2018 SUBJECTIVE: Patient is slightly feeling better at this time. Pain is improving. The patient had Port-A-Cath placed yesterday. No new complaints at this time. OBJECTIVE: Vital Signs: Temperature 97.6 degrees, heart rate 107, respiratory rate 18, blood pressure 173/98, saturating 98% on room air. General: Patient is awake, lying in bed. No acute distress noted. HEENT: Anicteric. Pupils: PERRLA. Mucous membranes appear to be moist. Cardiovascular: S1, S2, regular rate and rhythm. Chest: Bilateral breath sounds clear to auscultation. Abdomen: Soft, nontender. Bowel sounds present in all 4 quadrants. Neurologic: Alert and oriented x3. DIAGNOSTIC STUDIES: No new labs at this time. ASSESSMENT AND PLAN: 1. Metastatic adenocarcinoma of the lung: Dr. Ferraro has been consulted for radiation. Port-A-Cath has been placed. Once patient is discharged, we can discuss further treatments for chemotherapy. Continue to monitor. 2. Back pain with weakness and unsteady right leg and lower extremity: Dr. Ferraro consulted for radiation. Continue to monitor. 3. Deep venous thrombosis prophylaxis. Continue Lovenox as ordered. 4. Supportive care: Protein shakes 3 times a day. Plan of care discussed with Dr. Dukes. Dictated by SAEID Godoy for Nikos Dukes MD Patient seen and examined. As above. Status post Port-A-Cath. Proceed with radiation with Dr. Ferraro to his lower back. Follow-up in the clinic after discharge for further management. Nikos Dukes M.D. [facility]
[2018-07-28] MEDS: PROTONIX IV SCH (14:46)
[2018-07-28] MEDS: SODIUM CHLORIDE 0.9% INJ SCH (14:46)
--- NOTE | 2018-07-28 19:42 | PROGRESS NOTE ---
DATE: 07/28/2018 SUBJECTIVE: The patient had a port placed and waiting for radiation. EXAMINATION: Vital Signs: Temperature is 98. Vitals are stable. Port on the right side. Chest: Clear. Heart: Heart sounds are regular. Abdomen: Belly is soft, nontender. Neurologic: No obvious deficits. ASSESSMENT: 1. 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 2. Intractable back pain at the L1 lesion. PLAN: 1. IV steroids. 2. Waiting for radiation. 3. Physical therapy. 4. Blood pressure is under control. 5. Change the IV fluids to Clinimix to the Port-A-Cath. 6. Follow up DVT prophylaxis with Lovenox. LEVEL OF DOCUMENTATION: Level of documentation 25 minutes. cc: Henry Robertson MD
[2018-07-28] MEDS: KEFZOL 1 GM/D5W 1 GM/50 ML IVPB IV ONE (19:58)
[2018-07-28] MEDS: AMBIEN PO PRN (20:58)
[2018-07-29] MEDS: DECADRON IV SCH ×3 (01:13→17:00)
[2018-07-29] MEDS: CLINIMIX E 4.25%-5% SOLUTION 1,000 ML IV SCH ×2 (03:00→04:11)
[2018-07-29] MEDS: DILAUDID IV PRN ×4 (06:45→20:35)
[2018-07-29] MEDS: ULTRACET 37.5MG/325MG PO SCH ×3 (10:24→21:40)
[2018-07-29] MEDS: MIRALAX PO SCH ×2 (10:25→20:37)
[2018-07-29] MEDS: LOVENOX SUBQ SCH (10:25)
[2018-07-29] MEDS: NORVASC PO SCH (10:25)
[2018-07-29] MEDS: SODIUM CHLORIDE 0.9% INJ SCH (14:24)
[2018-07-29] MEDS: PROTONIX IV SCH (14:24)
--- NOTE | 2018-07-29 16:34 | PROGRESS NOTE ---
DATE: 07/29/2018 SUBJECTIVE: The patient is out of the bed. His pain is 7 out of 10. The patient went to simulation for radiation to the back. PHYSICAL EXAMINATION: Temperature 97 degrees, pulse is 109, blood pressure 128/74.Chest: Bilateral air entry. Heart: Heart sounds are regular, tachycardia. Abdomen: Belly is soft, nontender. No peripheral edema. Neurologic: No obvious deficits noted. INVESTIGATIONS: None reported. ASSESSMENT AND PLAN: 1. Metastatic non-small cell squamous cell cancer. 2. L1 metastatic disease with pain. 3. Dehydration status post port on the right side by Dr. Orlando. Plan is to continue IV Clinimix. Continue IV steroids. DVT and GI prophylaxis as per order sheet. Pain control with Dilaudid since it is 7 out of 10. Out of the bed with physical therapy. Radiation as planned by Dr. Ferraro. I discussed with the patient this morning if the pain is adequately controlled, he is able to ambulate, and the family can go as an outpatient for radiation therapy, at that point he will be discharged home and continue present therapy. LEVEL OF DOCUMENTATION: 25 minutes. cc: Henry Robertson MD
[2018-07-29] MEDS: AMBIEN PO PRN (21:40)
[2018-07-30] MEDS: DECADRON IV SCH ×3 (03:38→17:32)
[2018-07-30] MEDS: CLINIMIX E 4.25%-5% SOLUTION 1,000 ML IV SCH ×2 (03:38→20:14)
[2018-07-30] MEDS: DILAUDID IV PRN ×3 (05:59→20:14)
--- NOTE | 2018-07-30 10:50 | PROGRESS NOTE ---
DATE: 07/30/2018 SUBJECTIVE: The patient says he is resting comfortably now but is taking his IV Dilaudid to keep him comfortable right now. OBJECTIVE: Vital signs: Blood pressure 136/71, respirations 18, pulse 75, temperature 97.4 degrees Fahrenheit. HEENT: He is normocephalic. EOMs intact. PERRLA. Throat clear. Lungs: Sound clear to auscultation. Heart: Regular rate and rhythm without murmurs, gallops, friction rubs. Abdomen: Soft. Active bowel sounds. No organomegaly or tenderness. Neurologic: Intact grossly. ASSESSMENT: 1. Lung cancer. 2. Metastasis of lung cancer, metastasis at L1. PLAN: Continue to try control pain. Scheduled for radiation therapy on Wednesday. cc: MD Henry Navarro Jr, MD
[2018-07-30] MEDS: LOVENOX SUBQ SCH (11:00)
[2018-07-30] MEDS: NORVASC PO SCH (11:01)
[2018-07-30] MEDS: MIRALAX PO SCH ×2 (11:01→20:19)
[2018-07-30] MEDS: ULTRACET 37.5MG/325MG PO SCH ×2 (11:09→21:49)
[2018-07-30] MEDS: PROTONIX IV SCH (15:30)
[2018-07-30] MEDS: AMBIEN PO PRN (21:49)
[2018-07-31] MEDS: DILAUDID IV PRN ×4 (04:05→19:53)
[2018-07-31] MEDS: DECADRON IV SCH ×3 (04:05→17:00)
[2018-07-31] MEDS: ULTRACET 37.5MG/325MG PO SCH ×2 (08:34→20:57)
[2018-07-31] MEDS: NORVASC PO SCH (08:34)
[2018-07-31] MEDS: LOVENOX SUBQ SCH (08:34)
[2018-07-31] MEDS: MIRALAX PO SCH ×2 (08:34→20:53)
--- NOTE | 2018-07-31 09:59 | PROGRESS NOTE ---
DATE: 07/31/2018 SUBJECTIVE: The patient says his pain has been better. He has been up and walking with a walker but he is still requiring IV pain medication to control the pain. He says the pills are not working well enough by themselves. OBJECTIVE: Vital Signs: Blood pressure is 150/75, respirations 20, pulse 79, temperature 97.3 degrees Fahrenheit. HEENT: He is normocephalic. EOMs intact. PERRLA. Throat clear. Lungs: Clear to auscultation and percussion without rhonchi, rales, or wheezes. Heart: Regular rate and rhythm without murmurs, gallops, or friction rubs. Abdomen: Soft. Active bowel sounds. No organomegaly or tenderness. Neurologic: Examination intact grossly. ASSESSMENT: 1. Lung cancer. 2. Metastasis to the spine. 3. Jejqlhrpf-kq-rizryba pain. PLAN: Continue treatment. He is scheduled for radiation therapy tomorrow. cc: MD Henry Navarro Jr, MD
[2018-07-31] MEDS: PROTONIX IV SCH (14:59)
[2018-07-31] MEDS: CLINIMIX E 4.25%-5% SOLUTION 1,000 ML IV SCH ×2 (15:00→16:45)
[2018-07-31] MEDS: AMBIEN PO PRN (20:58)
[2018-08-01] MEDS: DILAUDID IV PRN ×4 (02:21→21:23)
[2018-08-01] MEDS: DECADRON IV SCH ×3 (02:22→18:21)
[2018-08-01] MEDS: ULTRACET 37.5MG/325MG PO SCH ×2 (09:35→21:24)
[2018-08-01] MEDS: NORVASC PO SCH (09:35)
[2018-08-01] MEDS: VITAMIN D PO SCH (09:35)
[2018-08-01] MEDS: MIRALAX PO SCH (09:35)
[2018-08-01] MEDS: LOVENOX SUBQ SCH (09:36)
[2018-08-01] MEDS: CLINIMIX E 4.25%-5% SOLUTION 1,000 ML IV SCH (14:13)
[2018-08-01] MEDS: PROTONIX IV SCH (14:14)
--- NOTE | 2018-08-01 21:16 | PROGRESS NOTE ---
DATE: 08/01/2018 SUBJECTIVE: The patient is getting better. His is not at bedside. I have seen him twice. He is getting up on his own. Eating well. Pain is 7/10, going for radiation this morning. PHYSICAL EXAMINATION: Vital Signs: On examination, temperature is 97.9, pulse 84, BP is stable. HEENT: Within normal limits. Neck: Supple. No lymphadenopathy. No goiter. Chest: Bilateral air entry. Heart: Sounds are regular. Abdomen: Belly is soft and nontender. Good bowel sounds. Neurologic: No neurological deficits. ASSESSMENT AND PLAN: 1. Metastatic squamous cell carcinoma. The patient is reluctant for chemotherapy. 2. Metastatic lesion L1. Continue IV steroids, going for radiation. Continue IV Clinimix and port on the right side. 3. Hypertension is stable. 4. Stool prophylaxis for chronic pain with polyethylene glycol. 5. Deep vein thrombosis prophylaxis with Lovenox. If the pain is slowly getting better with radiation, we will arrange outpatient radiation therapy. Continue to follow radiation and IV steroids and will communicate with patient's . Apparently, she has been sick. We will arrange the disposition based on his pain control. LEVEL OF DOCUMENTATION: 25 minutes. cc: Henry Robertson MD MTDD
[2018-08-01] MEDS: AMBIEN PO PRN (21:25)
[2018-08-02] MEDS: MIRALAX PO SCH ×3 (00:35→20:05)
[2018-08-02] MEDS: DILAUDID IV PRN ×5 (00:35→23:14)
[2018-08-02] MEDS: DECADRON IV SCH ×3 (01:37→17:41)
[2018-08-02] MEDS: ULTRACET 37.5MG/325MG PO SCH ×2 (10:08→20:03)
[2018-08-02] MEDS: NORVASC PO SCH (10:08)
[2018-08-02] MEDS: LOVENOX SUBQ SCH (10:08)
[2018-08-02] MEDS: CLINIMIX E 4.25%-5% SOLUTION 1,000 ML IV SCH (10:11)
[2018-08-02] MEDS: PROTONIX IV SCH (14:54)
[2018-08-02] MEDS: AMBIEN PO PRN (20:03)
--- NOTE | 2018-08-02 21:21 | PROGRESS NOTE ---
DATE: 08/02/2018 SUBJECT: Patient is out of the bed, had radiation therapy yesterday. Pain is 8/10. No complaints. His has been sick. EXAM: Temperature is 97 degrees, pulse 84, blood pressure stable.HEENT: Within normal limits. Neck: Supple. No lymphadenopathy. Chest: Bilateral air entry. Heart: Sounds are regular. Belly: Is soft, nontender. No obvious deficits. ASSESSMENT AND PLAN: 1. Metastatic non-small cell squamous cell cancer. 2. L1 metastatic lesion with impending radiculopathy and myelopathy. 3. Hypertension. 4. Dehydration. 5. Plan of care. Continue radiation as per Dr. Ferraro. IV steroids. Pain control with Dilaudid. The pain is adequately controlled less than 5 will attempt to discharge home and follow up as an outpatient radiation. Unfortunately the caregiver, his has been sick and continue present treatment for DVT prophylaxis and GI prophylaxis for constipation with MiraLAX and will follow up. LEVEL OF DOCUMENTATION: 25 minutes. cc: Henry Robertson MD
[2018-08-03] MEDS: DILAUDID IV PRN ×7 (02:35→23:43)
[2018-08-03] MEDS: DECADRON IV SCH ×3 (02:40→18:02)
[2018-08-03] MEDS: CLINIMIX E 4.25%-5% SOLUTION 1,000 ML IV SCH (06:34)
[2018-08-03] MEDS: ULTRACET 37.5MG/325MG PO SCH ×2 (09:50→21:38)
[2018-08-03] MEDS: NORVASC PO SCH (10:45)
[2018-08-03] MEDS: LOVENOX SUBQ SCH (10:45)
[2018-08-03] MEDS: MIRALAX PO SCH (10:45)
[2018-08-03] MEDS: PROTONIX IV SCH (18:03)
[2018-08-03] MEDS: AMBIEN PO PRN (21:38)
--- NOTE | 2018-08-03 21:55 | PROGRESS NOTE ---
DATE: 08/03/2018 SUBJECTIVE: The patient is going for radiation today. Pain is slowly improving. No complaints. OBJECTIVE: Vital Signs: Temperature is 98 degrees, pulse 94, blood pressure 132/67. Physical exam unremarkable. No new neurological deficits. ASSESSMENT AND PLAN: 1. Chronic back pain at the L1 lesion, getting radiation therapy and IV steroids. Slowly improving the pain control. 2. Metastatic [id number]-gnqo lung cancer, status post port on the right side and continue present treatment. Discussed the plan of care with Dr. Dukes and will also discuss with the patient's about outpatient radiation since he is slowly improving with the pain adequately controlled. We will do as an outpatient. LEVEL OF DOCUMENTATION: 25 minutes. cc: Henry Robertson MD
[2018-08-04] MEDS: MIRALAX PO SCH ×3 (00:08→20:48)
[2018-08-04] MEDS: CLINIMIX E 4.25%-5% SOLUTION 1,000 ML IV SCH ×2 (01:07→23:25)
[2018-08-04] MEDS: DECADRON IV SCH ×3 (01:08→17:15)
[2018-08-04] MEDS: DILAUDID IV PRN ×4 (07:50→20:51)
--- NOTE | 2018-08-04 11:07 | CONSULTATION ---
DATE OF CONSULTATION: 07/26/2018 REASON FOR CONSULTATION: Newly diagnosed lung cancer with bone metastasis and compression at the L1 vertebral body. REQUESTING PHYSICIAN: Nikos Dukes MD HISTORY OF PRESENT ILLNESS: Mr. De La Cruz is a 67-year-old gentleman who was admitted to [facility] with back pain and right leg numbness and weakness. He has had a significant weight loss and has had no appetite. He denies any cough or headache. He denies any problems with urination or his bowel movements. He denies any weakness in the upper extremities. Workup revealed a large mass within the chest starting at the left hilum and moving up into the left upper lobe. He had an MRI of the spine that showed numerous metastatic lesions to the cervical and thoracic spine as well as the lumbar spine. There was extensive metastatic disease particularly at L1 where there is compression of the thecal sac due to epidural disease. The patient has been started on dexamethasone, and I have been consulted for consideration of radiation therapy. PAST MEDICAL HISTORY: Diabetes mellitus, hypertension, gallstones, diverticulosis, gout, hemorrhoids, psoriatic rash, and sleep apnea. PAST SURGICAL HISTORY: Right hip replacement. SOCIAL HISTORY: The patient has an 80 pack year history of tobacco use. He currently smokes 2 packs per day. He reports occasional alcohol use. He denies drug use. FAMILY HISTORY: Lung cancer. ALLERGIES: To sulfa drugs. MEDICATIONS: Home medications include aspirin, amlodipine, Pletal, Vasotec, and vitamin C. PHYSICAL EXAMINATION: Vital Signs: Per the hospital record. General: The patient is awake and lying in bed. He is talkative. HEENT: Pupils are equal, round, and reactive to light. Extraocular movements are intact. The sclerae are anicteric. Neck: Supple with no lymphadenopathy. Heart: Regular rate and rhythm. Lungs: Clear to auscultation bilaterally. Abdomen: Soft, nontender. Neurologic: Exam reveals no focal deficits. Cranial nerves 2-12 are intact. ASSESSMENT AND PLAN: Unfortunately, it appears that Mr. De La Cruz has a metastatic lung cancer. Biopsy has been done. The biopsy revealed non-small cell lung cancer. I have discussed with the patient the use of radiation therapy for palliation of the cord compression of the L1 vertebral body. The patient wants to take some time to think things over, but he is inclined to decline any treatment. I have discussed this with Dr. Dukes, and he is going to talk it over with the patient as well. If he ends up agreeable to treatment, we will get him over for simulation as quickly as possible. cc: MD Henry Kemp MD
[2018-08-04] MEDS: ULTRACET 37.5MG/325MG PO SCH ×2 (11:31→20:51)
[2018-08-04] MEDS: LOVENOX SUBQ SCH (11:33)
[2018-08-04] MEDS: NORVASC PO SCH (11:34)
[2018-08-04] MEDS: PROTONIX IV SCH (17:13)
[2018-08-04] MEDS: AMBIEN PO PRN (20:51)
--- NOTE | 2018-08-04 21:08 | PROGRESS NOTE ---
DATE: 08/04/2018 SUBJECTIVE: The patient's pain is still 7/10. Going for radiation therapy. PHYSICAL EXAMINATION: Vital Signs: Stable. HEENT: Within normal limits. Neck: Supple. Chest: Clear. Heart: Heart sounds are regular. Abdomen: Belly is soft, nontender. Good bowel sounds. Neurologic: No neurological deficits. ASSESSMENT AND PLAN: 1. Metastatic lung cancer, non-small cell, with L1 epidural metastatic disease, currently getting steroids and radiation. 2. Deep vein thrombosis and gastrointestinal prophylaxis. 3. Out of the bed with physical therapy, slowly improving, and continue the present treatment. Will discuss the followup as an outpatient when the gets better, and continue present treatment. LEVEL OF DOCUMENTATION: 15 minutes. cc: Henry Robertson MD
[2018-08-05] MEDS: DILAUDID IV PRN ×6 (00:39→20:56)
[2018-08-05] MEDS: DECADRON IV SCH ×3 (00:39→17:35)
[2018-08-05] MEDS: MIRALAX PO SCH ×2 (08:30→20:57)
[2018-08-05] MEDS: NORVASC PO SCH (08:30)
[2018-08-05] MEDS: LOVENOX SUBQ SCH (08:30)
[2018-08-05] MEDS: ULTRACET 37.5MG/325MG PO SCH ×2 (08:30→20:56)
[2018-08-05] MEDS: PROTONIX IV SCH (13:49)
--- NOTE | 2018-08-05 17:38 | PROGRESS NOTE ---
DATE: 08/05/2018 SUBJECTIVE: The patient's pain is getting better. His leg is still a little bit weak. His is not at bedside. He is going for radiation at the L1 lesion. REVIEW OF SYSTEMS: None reported. EXAMINATION: Vital Signs: Temp is 97.7, pulse 78, blood pressure is 128/68. HEENT: Within normal limits. Neck: Supple. Chest: Bilateral air entry. Heart: Heart sounds are regular. Abdomen: Belly is soft, nontender, nonfocal. LABORATORY: No investigations done. ASSESSMENT AND PLAN: Metastatic squamous cell carcinoma L1 lesion. Continue IV steroids and radiation therapy. Pain is getting better. Continue IV Clinimix. DVT/GI prophylaxis. We will discuss with the family over the weekend about the disposition. Continue present treatment. LEVEL OF DOCUMENTATION: 25 minutes. cc: Henry Robertson MD
[2018-08-05] MEDS: AMBIEN PO PRN (20:59)
[2018-08-05] MEDS: CLINIMIX E 4.25%-5% SOLUTION 1,000 ML IV SCH (23:11)
[2018-08-06] MEDS: DECADRON IV SCH ×3 (01:14→16:59)
[2018-08-06] MEDS: DILAUDID IV PRN ×5 (04:48→21:15)
[2018-08-06] MEDS: NORVASC PO SCH (08:07)
[2018-08-06] MEDS: MIRALAX PO SCH ×2 (08:09→21:14)
[2018-08-06] MEDS: LOVENOX SUBQ SCH (08:09)
[2018-08-06] MEDS: ULTRACET 37.5MG/325MG PO SCH ×2 (09:03→21:14)
--- NOTE | 2018-08-06 12:50 | PROGRESS NOTE ---
DATE: 08/06/2018 SUBJECTIVE: The patient is doing better. Family is at bedside. Explained the plan of care. He still has pain 5/10. Continues requiring Dilaudid. OBJECTIVE: Vital Signs: On physical examination temperature is 98 degrees. Vitals are stable. HEENT: Within normal limits. Chest: Clear. Heart: Sounds are regular. Abdomen: Belly is soft, nontender. Good bowel sounds. Neurologic: Nonfocal. ASSESSMENT AND PLAN: Metastatic lung cancer squamous cell with L1 metastatic disease. Plan is radiation and intravenous steroids. The patient is still in pain with intravenous Dilaudid. We will change to the hydrocodone with equal in dose. Plan of care is continue present treatment. We will discharge on Wednesday after radiation therapy, go to the PET scan and see Dr. Dukes as an outpatient. Continue present treatment. LEVEL OF DOCUMENTATION: 25 minutes. cc: Henry Robertson MD
[2018-08-06] MEDS: PROTONIX IV SCH (14:19)
[2018-08-06] MEDS: SODIUM CHLORIDE 0.9% INJ SCH (14:19)
[2018-08-06] MEDS: CLINIMIX E 4.25%-5% SOLUTION 1,000 ML IV SCH (18:33)
[2018-08-07] MEDS: DECADRON IV SCH ×3 (01:26→17:24)
[2018-08-07] MEDS: DILAUDID IV PRN ×5 (06:14→21:16)
[2018-08-07] MEDS: MIRALAX PO SCH ×2 (09:14→21:16)
[2018-08-07] MEDS: NORVASC PO SCH (09:14)
[2018-08-07] MEDS: ULTRACET 37.5MG/325MG PO SCH ×2 (09:22→21:16)
[2018-08-07] MEDS: LOVENOX SUBQ SCH (10:00)
--- NOTE | 2018-08-07 13:32 | PROGRESS NOTE ---
DATE: 08/07/2018 SUBJECTIVE: The patient is doing better. Pain is 6/10. Going for radiation tomorrow. So far, he did finish five radiation therapies. PHYSICAL EXAMINATION: Vital Signs: Temperature is 97 degrees. Vitals are stable. HEENT Examination: Within normal limits. Neck: Supple. No lymphadenopathy. Chest has bilateral air entry. Heart sounds are regular. Belly is soft, nontender. No obvious deficits. ASSESSMENT AND PLAN: 1. Metastatic squamous cell cancer. Continue intravenous Dilaudid for pain. We will change to the [place] tomorrow. 2. He is going for radiation tomorrow. 3. He has been scheduled for a PET scan on Wednesday. I encouraged for ambulation. Continue present treatment. Hopefully, we will discharge on Wednesday and then from here, he will go for radiation and then PET scan, and follow up with Dr. Dukes as an outpatient. LEVEL OF DOCUMENTATION: 25 minutes. cc: Henry Robertson MD
[2018-08-07] MEDS: SODIUM CHLORIDE 0.9% INJ SCH (14:17)
[2018-08-07] MEDS: CLINIMIX E 4.25%-5% SOLUTION 1,000 ML IV SCH (14:17)
[2018-08-07] MEDS: PROTONIX IV SCH (14:17)
[2018-08-07] MEDS: AMBIEN PO PRN (21:16)
[2018-08-08] MEDS: DILAUDID IV PRN ×4 (02:12→14:11)
[2018-08-08] MEDS: DECADRON IV SCH ×3 (02:12→17:33)
[2018-08-08] MEDS: NORVASC PO SCH (10:05)
[2018-08-08] MEDS: ULTRACET 37.5MG/325MG PO SCH ×2 (10:05→20:46)
[2018-08-08] MEDS: VITAMIN D PO SCH (10:05)
[2018-08-08] MEDS: MIRALAX PO SCH ×2 (10:06→20:43)
[2018-08-08] MEDS: LOVENOX SUBQ SCH (10:06)
[2018-08-08] MEDS: CLINIMIX E 4.25%-5% SOLUTION 1,000 ML IV SCH (10:14)
[2018-08-08] MEDS: SODIUM CHLORIDE 0.9% INJ SCH (14:12)
[2018-08-08] MEDS: PROTONIX IV SCH (14:12)
--- NOTE | 2018-08-08 18:43 | PROGRESS NOTE ---
DATE: 08/08/2018 SUBJECTIVE: The patient is doing better. Pain is 6/10. We are going to change the pain medicine Dilaudid to [place]. He is ambulating very well. PHYSICAL EXAMINATION: Vital Signs: Temperature is 97 degrees. Vitals are stable. HEENT: Within normal limits. Chest: Clear. Heart: Sounds are regular. Abdomen: Belly is soft, nontender. No obvious deficits. ASSESSMENT AND PLAN: 1. Metastatic squamous cell lung cancer. Getting radiation plus steroids. Plan is changing the medicines Decadron and [place] tomorrow. 2. Will discharge in the morning and go for radiation followed by PET scan, and follow up with Dr. Dukes. Plan of care is to discontinue Dilaudid today. We will change to [place] along with Movantik for constipation. Plan of care discussed with the patient's family. LEVEL OF DOCUMENTATION: 25 minutes. cc: Henry Robertson MD
[2018-08-08] MEDS: AMBIEN PO PRN (21:20)
[2018-08-08] MEDS: NORCO-5 PO PRN (21:20)
[2018-08-09] MEDS: DECADRON IV SCH (00:13)
[2018-08-09] MEDS: NORCO-5 PO PRN (05:07)
[2018-08-09] MEDS: CLINIMIX E 4.25%-5% SOLUTION 1,000 ML IV SCH (06:00)
[2018-08-09] MEDS ORDERED: MOVANTIK PO SCH (07:00)
[2018-08-09 07:28] VITALS: BP 139/84
[2018-08-09] MEDS: NORVASC PO SCH (09:42)
[2018-08-09] MEDS: ULTRACET 37.5MG/325MG PO SCH (09:43)
--- NOTE | 2018-08-09 21:21 | DISCHARGE SUMMARY ---
ADMISSION DATE: 07/21/2018 DISCHARGE DATE: 08/09/2018 DISCHARGING DIAGNOSES: Intractable back pain due to L1 metastatic disease from squamous cell carcinoma of lung cancer. SECONDARY DIAGNOSES: 1. Metastatic stage IV lung cancer non-small cell, squamous cell. 2. Dehydration. 3. History of gallstones. 4. Chronic kidney disease stable. 5. Diverticulosis. 6. Type 2 diabetes, now diet controlled. 7. Hypertension. 8. Gout. 9. Hemorrhoids. 10. Sleep apnea. 11. Psoriatic rash. 12. Varicose veins in both legs with stasis dermatitis. 13. Vitamin D deficiency. 14. History of right hip replacement. CONSULTS: Nikos Dukes MD, Vilma Ferraro MD, Fidel Orlando MD. PROCEDURES: 1. Port-A-Cath on the right side of the chest. 2. Radiology procedure CT guided lung biopsy anteriorly of upper left mediastinal area consistent with moderate differentiated squamous cell carcinoma. 3. Radiology procedures, venous studies, no signs of DVT. 4. Thoracic spine of MRI, numerous metastatic lesion in the cervical and thoracic spine. 5. Lumbar spine MRI, extensive metastatic disease particularly L1 where there is a compression of the thecal sac due to metastatic disease. 6. MRI of the brain negative. 7. Chest CT, large mass extending in the left hilum anteriorly and superiorly along the medial left upper lobe invading the mediastinal area. BRIEF HISTORY: Please see the H and P that was done on 07/21/2018. In brief, he is a 67-year-old white male, basically admitted to the hospital with intractable back pain radiating to the groin, mostly on the left side for the last 6 weeks. He continues to deteriorate, weight loss, poor appetite. He is not able to even get in and out of the bed. He is not eating well. The patient was admitted to the hospital for further workup. HOSPITAL COURSE: Initially was dehydrated, started on IV fluids, follow up hydration. Renal function test came back normal. The patient did not have any chest pain, shortness of breath, coughing. He quit smoking more than 5 years ago. Incidental chest x-ray found a large mass in the left side of the chest. Subsequently, chest CT findings consistent with highly suspicious for malignancy. CT-guided biopsy done by Dr. Tanvir Olvera, consistent with squamous cell carcinoma of the lung. Patient complains of intractable back pain. As a part of the workup I did MRI of the brain, MRI of the C-spine and thoracic spine and lumbar spine. It showed extensive metastatic disease in the bone, particularly at the L1 with compression to the thecal sac, some epidural disease. That is the one that is causing his pain at this time. He has some weakness in the right leg. As a result, the patient was started on IV Decadron. For pain control, I gave IV Dilaudid. Nutritional status, slowly improved. Started on IV Clinimix after placing the port on the right side by Dr. Orlando. The patient was seen by Dr. Dukes and Dr. Ferraro. The patient is adamant to go for chemotherapy at this time. At this time his main pain is L1 disease for which he was given IV steroids and radiation therapy as per Dr. Ferraro. The patient is able to ambulate without any neurological deficits. I slowly swapped the pain medicine to the Percocet and continued on Decadron. His blood pressure is well controlled. Patient pain is adequately controlled and he has outpatient PET scan today at 11:00 and follow up with Dr. Dukes for his long-term prognosis and further palliative chemotherapy. The patient did not have any DVT in the right leg. At the time of discharge, labs as follows. CBC: White cell count 10, hematocrit 34, platelets 312. SMA-7: Sodium 136, potassium 5.1, BUN 37, creatinine 1.1. CEA level is 10. DISCHARGE INSTRUCTIONS FOLLOWS: 1. Continue outpatient radiation therapy to L1 disease. 2. Follow up outpatient PET scan. 3. Follow up with Dr. Dukes. DISCHARGE MEDICATIONS: Metoprolol 50 daily, Zofran for p.r.n. nausea. Protonix 40 daily, Percocet 10 t.i.d. for pain control, Movantik 25 daily, MiraLAX 17 g b.i.d., dexamethasone 4 mg in the morning, Ambien for sleep. Discontinue Pletal. Discontinue enalapril. Vitamin D 50,000 units once a week, amlodipine 10 daily. Based on the PET scan, further recommendations will be followed. cc: MD Vilma Fonseca MD Jagan Reddy, MD MTDD
== END 2018-08-09 09:50 | disposition home or self-care (01) | DRG 982 ==
LOC: EDIPHOLD 14:59 → 3N 21:03
PROVIDERS: ADMIT Internal Medicine; ATTEND Internal Medicine
CPT/HCPCS: 32405; 70551; 71020; 71046; 71250; 72146; 72148; 77001; 77012; 77280; 77305; 77306; 77336; 77402; 77407; 77417; 80048; 80053; 82378; 82607; 82805; 83735; 83880; 84439; 84484; 84550; 85025; 85027; 85610; 85651; 85730; 88305; 88341; 88342; 88343; 93005; 93971; 94761; 97110; 97116; 97162; 97530; A9270; C1788; C9113; G0461; G0462; J0690; J1100; J1170; J1650; J2405; J7030; J7050; S0164

== ENCOUNTER 2018-08-26 13:55 | Inpatient (IN) ==
[2018-08-26] MEDS ORDERED: SOLU-CORTEF IV ONE (17:01)
[2018-08-26] MEDS ORDERED: AMBIEN PO PRN (17:04)
[2018-08-26] MEDS ORDERED: SODIUM CHLORIDE 0.9% INJ SCH (17:15)
[2018-08-26] MEDS: LOVENOX SUBQ SCH (18:09)
[2018-08-26] MEDS: PEPCID IV SCH (18:09)
[2018-08-26] MEDS: CLINIMIX E 4.25%-5% SOLUTION 1,000 ML IV SCH (18:10)
[2018-08-26 18:15] LABS: HEMATOCRIT 32.1 % (42.0-52.0); HEMOGLOBIN 10.5 g/dL (14.0-18.0); IMM GRAN# 0.12 X1000 (0.0-0.04); LYMPH% 1.7 % (20.5-51.1); MCH 28.9 PG (27-31); MCHC 32.7 g/dL (33-37); MCV 88.4 FL (81-99); MONO# 0.46 X1000 (0.11-0.59); MONO% 3.9 % (1.7-9.3); MPV 10.3 FL (7.4-10.4); NEUT% 93.4 % (42.2-75.2); PLT 60 X1000 (130-400); RBC 3.63 XMIL (4.7-6.1); RDW 14.7 % (11.5-14.5); WBC 11.88 X1000 (4.8-10.8)
[2018-08-26 18:21] LABS: LYMPHS 4 % (21-51); MONO 4 % (1-9); SEGS 92 % (42-75)
[2018-08-26 18:49] LABS: ALB/GLOB RATIO 0.7; CALCIUM 7.5 mg/dL (8.8-10.2); CREATININE 1.7 mg/dL (0.7-1.2); POTASSIUM 4.8 mmol/L (3.5-5.1); TOTAL BILIRUBIN 0.4 mg/dL (0.20-1.00); TOTAL PROTEIN 4.9 g/dL (6.3-8.3)
[2018-08-26 19:13] LABS: SED RATE 40 mm/hr (0-15)
--- NOTE | 2018-08-26 20:10 | Diag Imaging Result Doc PS360 ---
EXAM: CHEST-2 VIEWS 08/26/2018 HISTORY: SOB TECHNIQUE: AP upright chest at 2001 COMMENT: Compared to 07/25/2018 the opacity over the left base has cleared. The heart size remains slightly enlarged. There is blunting of the posterior costophrenic angles which may indicate bilateral pleural effusions. IMPRESSION: Small bilateral pleural effusions. Cardiomegaly. Electronically signed by Oumar Aj 08/26/2018 8:08 PM
[2018-08-26] MEDS: MIRALAX PO SCH (21:22)
[2018-08-26] MEDS: ULTRACET 37.5MG/325MG PO SCH (21:22)
--- NOTE | 2018-08-26 22:40 | HISTORY AND PHYSICAL ---
CHIEF COMPLAINT: Extreme weakness, dehydration, not able to get out of the bed since yesterday. HISTORY OF PRESENT ILLNESS: A 67-year-old white male patient of mine with recently diagnosed metastatic [id number] lung cancer, squamous cell, bone metastasis with a mass in the left upper lobe, under the care of Dr. Dukes. He had a PET scan. Plan is to do Xgeva for bone metastatic disease. Currently on steroids, finished radiation for L1 metastatic disease. Doing very well, having some swelling of legs. Extremely dehydrated, not eating. The patient was not able to ambulate, and at the request of the patient's got admitted to the hospital for dehydration and weakness. Upon workup, the patient was found to have a BUN 51, creatinine 1.7, hyponatremia as well as azotemia. He needs some IV fluids and. Upon questioning the patient denies any radicular pain or any focal symptoms of weakness. PAST MEDICAL HISTORY: 1. History of gallstones. 2. Chronic renal failure, but his a creatinine was normal last time. 3. Diverticulosis. 4. Type 2 diabetes. 5. Hypertension. 6. Gout. 7. Hemorrhoids. 8. Sleep apnea. 9. Psoriatic rash. 10. Varicose veins in both legs with edema. 11. Vitamin D deficiency. 12. Metastatic [id number] lung cancer. PAST SURGICAL HISTORY: Right hip replacement and Port-A-Cath on the right side. MEDICATIONS: Prior to the admission as follows: Metoprolol 50 mg daily; Protonix 40 daily; Percocet 10 t.i.d.; Movantik 25 with AC once a day polyethylene glycol 17 g p.o. b.i.d.; Decadron 4 mg in the morning; zolpidem 10 mg at bedtime; Ultracet 1 tablet p.o. b.i.d.; amlodipine 10 daily; vitamin D 50,000 once a week. We discontinued Pletal and enalapril. Only blood pressure medicine is amlodipine 10 daily. ALLERGIES: Sulfa. SOCIAL HISTORY: He is . Two children. Lives in [place]. Drinking alcohol on a daily basis. Smoking 2 packs a day for 40 years. Quit smoking for the last 3 years. FAMILY HISTORY: Father at 78 from lung cancer. Mother of dementia at 72. REVIEW OF SYSTEMS: HEENT: No headache, no vision problem. No earache. No sore throat. Cardiopulmonary: No chest pain, shortness of breath, PND or orthopnea. GI: Nauseous, not eating well. No constipation. No diarrhea. : No history of hesitancy, frequency or dysuria. Swelling of feet on both legs. Neurologic: No focal symptoms of weakness. PHYSICAL EXAMINATION: VITAL SIGNS: Temperature is 97 degrees, pulse 102, blood pressure is stable. GENERAL: Five feet 6 inches, 165 pounds. HEENT: Dry mucous membranes. Pupils equal, reactive to light. NECK: JVD is not elevated. CHEST: Bilateral air entry. HEART: Sounds are regular. Slightly tachycardic. ABDOMEN: Belly is soft, nontender. Good bowel sounds. EXTREMITIES: Pedal edema noted. Chronic venous stasis changes noted. NEUROLOGIC: Able to move all the extremities. No obvious neurological deficits noted. LABORATORY DATA: CBC: White cell count 11, hematocrit 32, platelets 60,000. Sedimentation rate is 40. Sodium 132, potassium 4.8, BUN 51, creatinine 1.7, glucose 149, calcium 7.8, alkaline phosphate is 193. ASSESSMENT AND PLAN: 1. A 67-year-old white male with metastatic lung cancer, non-small cell, with bone metastasis, L1 compression lesion, status post radiation. Continue intravenous steroids. 2. Thrombocytopenia. We will watch. 3. Dehydration. Continue intravenous Clinimix. Can access the port on the right side. 4. Gastrointestinal prophylaxis with intravenous Pepcid. 5. Hypertension. Continue on metoprolol. 6. For pain control, he is not in much pain. Continue on tramadol. 7. Continue on Movantik and polyethylene glycol for constipation, Ambien for sleep. We will give a stress dose of steroids. 8. We will follow up on hypocalcemia. We will give the calcium tablets and we will consult Dr. Dukes while he is in the hospital. Will follow up. cc: Henry Robertson [facility]
[2018-08-27] MEDS: PEPCID IV SCH ×2 (04:52→18:02)
[2018-08-27] MEDS: CLINIMIX E 4.25%-5% SOLUTION 1,000 ML IV SCH ×2 (04:52→18:01)
[2018-08-27] MEDS: TYLENOL PO PRN (05:22)
[2018-08-27] MEDS: MOVANTIK PO SCH (06:06)
[2018-08-27] MEDS ORDERED: CALCIUM GLUCONATE 1 GM in NS 50 ML IV ONE (09:02)
[2018-08-27] MEDS: TOPROL XL PO SCH (10:43)
[2018-08-27] MEDS: MIRALAX PO SCH ×2 (10:43→21:39)
[2018-08-27] MEDS: ULTRACET 37.5MG/325MG PO SCH ×2 (11:11→21:39)
[2018-08-27] MEDS: DECADRON IV SCH (11:11)
[2018-08-27 14:36] LABS: URINE SOURCE CATH
[2018-08-27 14:40] LABS: BILIRUBIN URINE NEGATIVE (NEGATIVE); BLOOD URINE MODERATE (NEGATIVE); COLOR YELLOW; GLUCOSE URINE NEGATIVE (NEGATIVE); KETONE URINE NEGATIVE (NEGATIVE); LEUKOCYTES URINE NEGATIVE (NEGATIVE); NITRITE URINE NEGATIVE (NEGATIVE); PROTEIN URINE 300 mg/dL (NEGATIVE); SP GRAVITY URINE 1.013; TURBIDITY URINE HAZY (CLEAR); UR EPITHELIAL CELLS <10 /HPF (<10); URINE BACTERIA 4+ /HPF; URINE RBC 20-40 /HPF (<10); URINE WBC <10 /HPF (<10); UROBILINOGEN URINE NORMAL (NORMAL)
[2018-08-27] MEDS: LOVENOX SUBQ SCH (18:02)
--- NOTE | 2018-08-27 19:17 | PROGRESS NOTE ---
DATE: 08/27/2018 SUBJECTIVE: The patient is a little better and he is still sleeping. OBJECTIVE: On examination, he had a fever last night, 101, heart rate is 125, blood pressure is stable 93% on room air. HEENT exam: Within normal limits. Neck: Supple. Chest: Bilateral air entry. Heart: Sounds are regular. Abdomen: Belly is soft, nontender. Good bowel sounds. Extremities: No edema. Neurologic: No obvious neurological deficits. ASSESSMENT AND PLAN: 1. Fever 101 and chest x-ray looked at. No pneumonia. Blood cultures and urine cultures. 2. Tylenol as needed. 3. Not eating well, dehydration. Continue IV Clinimix. 4. Deconditioning out of the bed with physical therapy. 5. Hypocalcemia replace the calcium. 6. L1 metastatic disease, continue IV Decadron, status post radiation recently. 7. Deep vein thrombosis prophylaxis and gastrointestinal prophylaxis, as per order sheet. 8. Tachycardic on metoprolol. 9. Consult with Dr. Dukes discussed with nurse practitioner and check the labs in the morning. LEVEL OF DOCUMENTATION: 25 minutes. cc: Henry Robertson MD
[2018-08-28] MEDS: TYLENOL PO PRN (04:20)
--- NOTE | 2018-08-28 04:30 | HEMO/ONC CONSULTATION ---
DATE: 08/27/2018 CHIEF COMPLAINT: Admitted per his primary care doctor for extreme weakness, dehydration, and unable to get out of the bed since . We were asked to consult regarding his recent diagnoses of lung cancer with bone metastases. HISTORY OF PRESENT ILLNESS: Mr. De La Cruz has been recently diagnosed with metastatic non-small cell lung cancer, squamous cell, and bone mets with a mass in the left upper lobe. He is known to us as we recently presented him with his treatment options. He proceded with radiation treatments while considering his chemo options. We had planned to start Xgeva for his bone metastatic disease. He is currently on steroids and has finished radiation for L1 metastatic disease. He is dehydrated from not eating. He was having difficulty ambulating due to quadricep weakness. His workup revealed a BUN of 51, creatinine 1.7. He has hyponatremia as well as azotemia. He denies any pain. PAST MEDICAL HISTORY: 1. History of gallstones. 2. Chronic renal failure, but his creatinine has been running normal. 3. Diverticulosis. 4. Type 2 diabetes. 5. Hypertension. 6. Gout. 7. Hemorrhoids. 8. Sleep apnea. 9. Psoriatic crash. 10. Varicose veins in both legs with edema. 11. Vitamin D deficiency. 12. Metastatic non-small lung cell cancer. PAST SURGICAL HISTORY: 1. Right hip replacement. 2. Port-A-Cath on the right side. HOME MEDICATIONS: Norvasc, Decadron, vitamin D2, metoprolol succinate, Movantik, Zofran, Percocet, Protonix, MiraLAX, tramadol, and Ambien. ALLERGIES: Sulfa. SOCIAL HISTORY: He quit smoking approximately 3 years ago, he smoked 2 packs a day for at least 40 years. He does drink alcohol on daily basis. FAMILY HISTORY: His father from lung cancer. REVIEW OF SYSTEMS: The patient denies any pain. He has varicose veins, poor circulation, and edema to bilateral lower extremities. LABORATORY STUDIES: White blood cell count 11.8, hemoglobin 10.5, hematocrit 32.1, platelet count 60,000. ESR is 40. Creatinine was 1.7, BUN is 51. PHYSICAL EXAM: Vital signs: Temperature is 98.9 degrees, pulse rate is 142, respiratory rate is 16, blood pressure is 102/57, he is 95% on room air. 0/10 pain.General: The patient is asleep in bed, but easy to arouse for conversation. HEENT: Dry mucous membranes. PERRLA, anicteric. Chest: Clear to auscultation. Equal rise and fall. Heart: S1, S2 noted. No murmurs noted. Tachycardic. Abdomen: Belly is soft and nontender. Positive bowel sounds. Extremities: Bilateral lower extremity edema +1. Chronic venous stasis with very dry skin to bilateral lower extremities. Neurologic: He is able to move all extremities. Alert and oriented x3. No focal deficits noted. ASSESSMENT AND PLAN: 1. Metastatic lung cancer with bone metastasis: Continue his IV steroids. Consider tapering. We will hold other treatments until patient is out of the hospital. 2. Thrombocytopenia: We will continue to monitor. Transfuse under 20,000. 3. Dehydration. Continue intravenous Clinimix. Staff can access his port on the right side if needed. 4. Pain control: The patient is not experiencing much pain, but continue per Dr. Robertson's recommendation. 5. Hypocalcemia: He will receive calcium gluconate 1 g in 50 mL of normal saline. We will continue to monitor. 6. Deconditioning/ steroid induced quadricep weakness: Patient needs to get up out of bed for most of the day. While in the chair he needs to perform several sets of leg marches and sit/standing exercises to strengthen his quadriceps. Dictated by SAEID Crandall for Nikos Dukes MD Patient seen and examined. As above. Patient known to us for metastatic lung cancer. So far he has declined chemotherapy. He did receive radiation for L1 fracture with epidural spread. Patient has significant thrombocytopenia. Etiology is unclear to me. Monitor closely and transfuse if bleeding or platelet count less than 20,000. He also has change in mental status and low-grade fevers. Most likely this is from infection. Start antibiotics. Follow-up on cultures. Also will discuss DNR with his . Nikos Dukes M.D. cc: MD Henry Fonseca MD [facility]
[2018-08-28] MEDS: MOVANTIK PO SCH (06:15)
[2018-08-28] MEDS: CLINIMIX E 4.25%-5% SOLUTION 1,000 ML IV SCH ×2 (06:34→20:39)
[2018-08-28] MEDS: PEPCID IV SCH ×2 (06:34→20:38)
[2018-08-28 07:41] LABS: ALB/GLOB RATIO 0.5; ALBUMIN 1.5 g/dL (3.5-5.0); CALCIUM 7.6 mg/dL (8.8-10.2); CREATININE 1.6 mg/dL (0.7-1.2); POTASSIUM 4.4 mmol/L (3.5-5.1); TOTAL BILIRUBIN 0.84 mg/dL (0.20-1.00); TOTAL PROTEIN 4.4 g/dL (6.3-8.3)
[2018-08-28 07:48] LABS: HEMATOCRIT 34.3 % (42.0-52.0); HEMOGLOBIN 11.3 g/dL (14.0-18.0); MCH 29.1 PG (27-31); MCHC 32.9 g/dL (33-37); MCV 88.4 FL (81-99); PLT 28 X1000 (130-400); RBC 3.88 XMIL (4.7-6.1); RDW 14.9 % (11.5-14.5); WBC 8.13 X1000 (4.8-10.8)
[2018-08-28] MEDS: XANAX PO SCH ×4 (08:06→20:16)
[2018-08-28] MEDS: DECADRON IV SCH (08:06)
[2018-08-28] MEDS: TOPROL XL PO SCH ×2 (08:06→12:09)
[2018-08-28] MEDS: MIRALAX PO SCH ×2 (08:06→20:16)
[2018-08-28] MEDS: ULTRACET 37.5MG/325MG PO SCH ×2 (08:08→20:16)
[2018-08-28] MEDS ORDERED: ZYPREXA IM ONE (08:21)
--- NOTE | 2018-08-28 08:34 | GENERAL SURGERY CONSULTATION ---
DATE: 08/27/2018 HISTORY OF PRESENT ILLNESS: This is a patient who Dr. Orlando placed a port for metastatic lung cancer therapy approximately 1 month ago. He has done okay. He has not started therapy, but had multiple lab draws, poor peripheral access. He was admitted for management of exacerbation of his disease, dehydration, and was found to have a nonfunctional port. There has been some bruising and possibly infiltration of the port site. I was consulted for management of this. PAST MEDICAL HISTORY: Chronic kidney disease, diverticulitis, lung cancer, psoriasis, sleep apnea, gout, hypertension, diabetes. SURGICAL HISTORY: Right hip replacement, Port-A-Cath placed in the right subclavian 1 month ago. SOCIAL HISTORY: Daily alcohol. Smokes 2 packs a day x 40 years, quit 3 years ago. FAMILY HISTORY: Reviewed and significant for lung cancer. MEDICATIONS: Reviewed. PHYSICAL EXAMINATION: Vitals: Heart rate 110. He is afebrile. Blood pressure has been 89 systolic to 102 systolic. Oxygen is 91% on room air. General: He is a chronically ill elderly appearing gentleman. He is sleeping, somewhat arousable. His is here with him. He is in no obvious distress. Cardiovascular: Tachycardia. Pulmonary: No increased work of breathing. Abdomen: Soft. Integument: Warm, dry. Peripheral vascular: Upper extremities well perfused. No edema. There is a right-sided port placement. LABORATORY: White count 11, hematocrit 32. Creatinine is 1.7. ASSESSMENT AND PLAN: A 67-year-old gentleman with a right-sided port apparently not functioning properly and difficulty flushing. May be that it was accessed inappropriately. We will be deaccess the port, we will observe it for 24 hours. He does have good peripheral access and temporary access tomorrow. If unsuccessful, we can discuss removal or placement of another access. We will continue to follow along. cc: MD Henry Moody MD
[2018-08-28] MEDS ORDERED: ZYPREXA IM PRN (09:00)
--- NOTE | 2018-08-28 09:04 | Diag Imaging Result Doc PS360 ---
EXAM: CT HEAD W/O CONTRAST 08/28/2018 HISTORY: AMS TECHNIQUE: This exam was performed using automated exposure control, adjustment of mA or kV according to patient size, and/or use of iterative reconstruction technique. COMMENT: There is no evidence of mass effect, bleed, or abnormal extra-axial fluid collection. There is some patchy periventricular white matter lucency consistent with chronic microvascular disease. This was also the case at the time the previous study of 07/24/2014. The visualized paranasal sinuses are clear. The calvarium is intact. IMPRESSION: Chronic microvascular white matter changes. No evidence of acute intracranial disease. Electronically signed by Oumar Aj 08/28/2018 9:01 AM
--- NOTE | 2018-08-28 11:14 | PROGRESS NOTE ---
DATE: 08/28/2018 VITAL SIGNS: Temperature 97.6 degrees, heart rate 114, sinus rhythm, respirations 14, blood pressure 127/85, O2 saturation on room air 100%. The patient has been more confused and not himself, with agitation since last evening. CT scan of his head was unremarkable. There is some atrophy but no lesions. LABORATORY: Sodium 134, potassium 4.4, BUN 58, creatinine 1.6, glucose 135, alkaline phosphatase 177, total protein 4.4, albumin 1.5. The patient is not taking anything p.o. Hemoglobin is 11.3, hematocrit 34.3, white blood count 8100, and platelet count 28,000. There is some bruising around his right port which, according to nurses, has been unchanged. Apparently, the right port is not accessible at this time. He has an IV in his right arm and is receiving IV fluids. He was given Zyprexa which seemed to help calm him. There is no intelligible speech at this time. Neurologic status otherwise is unremarkable. Pupils are equal. There is movement of all extremities. PLAN: Continue current therapy plus p.o. Xanax and Zyprexa p.r.n. cc: MD Henry Nagy MD
[2018-08-28] MEDS ORDERED: VANCOMYCIN IV PER PHARMACY MISC SCH (12:00)
[2018-08-28] MEDS ORDERED: MAXIPIME 1 GM in NS 50 ML IV SCH (12:00)
[2018-08-28] MEDS ORDERED: MAXIPIME 1 GM in NS 50 ML IV ONE (12:27)
[2018-08-28] MEDS: DILAUDID IV PRN ×2 (12:32→20:38)
[2018-08-28] MEDS ORDERED: VANCOMYCIN 1,850 MG in NS 500 ML IV ONE (14:00)
--- NOTE | 2018-08-28 16:37 | INFECTIOUS DISEASE CONSULT REP ---
DATE: 08/28/2018 CONCLUSION: The patient has metastatic lung cancer and he now presents with a gram-negative ginna urinary tract infection. He may have a bacteremia as well. The patient has a Port-A-Cath and possibly he has an infection from the Port-A-Cath such as a bacteremia also. RECOMMENDATIONS: I agree with treating the patient with vancomycin and cefepime. I have increased the dose of cefepime to 2 g IV every 12 hours. I have also ordered an ultrasound of the kidneys. DISCUSSION: The patient is unable provide a history. No family member is present. The information I obtained was from the computer. The patient is being treated for lung cancer with metastases by Dr. Dukes. He was admitted to the hospital with extreme weakness and dehydration. His CBC shows a white count of 8130, hemoglobin 11.3 and platelet count 28,000. His creatinine is 1.6. GFR is 43. Alkaline phosphatase is 177. Urinalysis showed bacteria but no white cells. Blood cultures are pending. Urine is growing a gram-negative ginna. Head CT scan showed chronic microvascular white matter changes. Chest x-ray shows small bibasilar pleural effusions. PAST MEDICAL HISTORY: Positive for gallstones, end-stage renal disease, diverticulosis, diabetes, hypertension, gout, hemorrhoids, sleep apnea, psoriasis, varicose veins in both legs with edema, vitamin D deficiency and metastatic non small-cell lung cancer. PAST SURGICAL HISTORY: Patient has had his right hip replaced. He has also had a Port-A-Cath placed on the right side. SOCIAL HISTORY: He is . He lives in [place]. He drinks alcohol daily and smoked 2 packs of cigarettes a day for 40 years and he quit smoking starting 3 years ago. FAMILY HISTORY: Positive for lung cancer and dementia. REVIEW OF SYSTEMS: Unable to obtain. COMORBIDITIES: The patient has metastatic lung cancer. He also has chronic obstructive pulmonary disease, diabetes mellitus and end-stage renal disease, history of chronic cigarette smoking. HOME MEDICATIONS: Metoprolol, Protonix, Percocet, Movantik, Decadron, Ultracet, vitamins. ALLERGIES: The patient is allergic to sulfa. ASSESSMENT AND PLAN: The patient has a gram-negative ginna urinary tract infection and possibly an associated bacteremia. I am going to continue with vancomycin and cefepime. This is the first day that those 2 antibiotics were given. PHYSICAL EXAMINATION: Vital signs: Temperature 97.6 degrees, pulse 114, respirations 14, blood pressure 127/85. The patient's weight is 164 pounds General: This is an ill-appearing, elderly male. He is very lethargic. He does not respond to verbal stimuli. Head, eyes, ears, nose and throat: No drainage noted from the nose or ears. Neck: No meningismus. Lungs: Clear to auscultation. Cardiovascular: Heart rate is regular. Abdomen: Soft and nontender. Neurologic: The patient does not respond to verbal stimuli. There is no tremor. Integument: No rash. Thank you for the consult. cc: MD Henry Gonzalez MD
--- NOTE | 2018-08-28 20:30 | GENERAL SURGERY PROGRESS NOTE ---
DATE: 08/28/2018 SUBJECTIVE: He remains very somnolent. Nurse says he has been disoriented. Platelet count down to 28 and white count is 8. There is bruising around the port but no signs of cellulitis. ASSESSMENT AND PLAN: A 67-year-old gentleman with malfunction his port. Suspect this related to local hematoma or infiltration of attempts at access, told nurse they can reattempt to access if it is unsuccessful we can consider removal, replacement although I suspect the patient has very grim prognosis given his current clinical condition, he would be very high risk for surgery. cc: MD Henry Moody MD
[2018-08-28] MEDS: LOVENOX SUBQ SCH (20:38)
[2018-08-29] MEDS ORDERED: MAXIPIME 2 GM in NS 100 ML IV SCH (01:00)
[2018-08-29] MEDS: CLINIMIX E 4.25%-5% SOLUTION 1,000 ML IV SCH ×3 (01:06→20:48)
[2018-08-29] MEDS: XANAX PO SCH ×4 (01:07→20:48)
[2018-08-29] MEDS: DILAUDID IV PRN ×2 (05:33→20:53)
--- NOTE | 2018-08-29 07:18 | EKG Report ---
Test Performed on : 08/28/2018 00:42:57 AM Test Reason : irregular HR Blood Pressure : / mmHG Vent. Rate : 147 BPM Atrial Rate : 147 BPM P-R Int : 112 ms QRS Dur : 078 ms QT Int : 266 ms P-R-T Axes : 030 015 081 degrees QTc Int : 416 ms Sinus tachycardia. Otherwise normal ECG When compared with ECG of 21-JUL-2018 18:04, (Unconfirmed) premature atrial complexes. are no longer present Confirmed by Abhinav BILLY, Elmer Winston ([id number]) on 08/29/2018 9:28:16 AM
[2018-08-29] MEDS: DECADRON IV SCH (08:16)
[2018-08-29] MEDS: PEPCID IV SCH ×2 (08:19→20:53)
[2018-08-29 10:12] LABS: BASO# 0.01 X1000 (0.0-0.2); BASO% 0.1 % (0.0-0.8); HEMATOCRIT 32.2 % (42.0-52.0); HEMOGLOBIN 10.5 g/dL (14.0-18.0); IMM GRAN# 0.02 X1000 (0.0-0.04); IMM GRAN% 0.3 % (0.0-0.5); LYMPH# 0.19 X1000 (1.2-3.4); LYMPH% 2.4 % (20.5-51.1); MCH 28.8 PG (27-31); MCHC 32.6 g/dL (33-37); MCV 88.2 FL (81-99); MONO# 0.43 X1000 (0.11-0.59); MONO% 5.5 % (1.7-9.3); NEUT# 7.14 X1000 (1.4-6.5); NEUT% 91.7 % (42.2-75.2); PLT 24 X1000 (130-400); RBC 3.65 XMIL (4.7-6.1); RDW 15.1 % (11.5-14.5); WBC 7.79 X1000 (4.8-10.8)
[2018-08-29 10:33] LABS: BANDS 2 % (0-1); LYMPHS 2 % (21-51); SEGS 96 % (42-75)
[2018-08-29] MEDS: MOVANTIK PO SCH (13:29)
[2018-08-29] MEDS: MIRALAX PO SCH ×2 (13:30→20:49)
[2018-08-29] MEDS: TOPROL XL PO SCH (13:30)
[2018-08-29] MEDS: ULTRACET 37.5MG/325MG PO SCH ×2 (13:30→20:49)
--- NOTE | 2018-08-29 15:35 | HEMO/ONC PROGRESS NOTE ---
DATE: 08/29/2018 SUBJECTIVE: Patient is unresponsive at this time. The patient continues to decline quickly. OBJECTIVE: Vital Signs: Temp 100.3 degrees, heart rate 32, respiratory rate 30, blood pressure 101/83, saturation 95% on nasal cannula. General: Patient is lying in bed, somnolent, unable to arouse at this time. Chest: Bilateral breath sounds diminished bilaterally. Cardiovascular: S1, S2. Increased rate and rhythm. Abdomen: Soft, nontender. Bowel sounds present in all 4 quadrants. Neurological: Unable to be aroused. Unresponsive at this time. LABORATORY DATA: White count 7.79, hemoglobin 10.9, hematocrit 32.2, platelets 24,000. ASSESSMENT AND PLAN: 1. Metastatic lungs cancer with bone metastasis: Patient is unresponsive. He was made an DNR 1. Prognosis is extremely poor at this time. Recommend comfort measures. 2. Thrombocytopenia: Platelet count is still greater than 20,000. Just continue to monitor, transfuse if less than 20,000 and for any signs of bleeding. 3. Dehydration. Continue IV fluids as needed. Continue recommendations per primary medical team. 4. Pain control: Continue recommendations per primary medical team. Plan of care discussed with Dr. Dukes. Dictated by SAEID Godoy for Nikos Dukes MD Patient seen and examined. As above. Patient is unresponsive. is at the bedside. He has been made DNR 1. Patient has declined therapy in the past. is seriously considering comfort measures only. She will discuss this further with Dr. Robertson. Nikos Dukes M.D. [facility]
[2018-08-29] MEDS ORDERED: AMPICILLIN 2 GM/NS 2 GM/100 ML IVPB IV SCH (16:00)
[2018-08-29] MEDS ORDERED: CALMOSEPTINE OINTMENT TOP PRN (16:33)
--- NOTE | 2018-08-29 18:19 | INFECTIOUS DISEASE PROGRESS NO ---
DATE: 08/29/2018 ADDENDUM: I discussed with the patient's about her . She says that he would not want to have any measures other than comfort measures now and the agrees with that. For this reason, I am going to go ahead and stop his antibiotics and also cancel the patient's renal ultrasound. I am signing off the patient's case. cc: MD Henry Gonzalez MD
--- NOTE | 2018-08-29 18:58 | INFECTIOUS DISEASE PROGRESS NO ---
DATE: 08/29/2018 PRESENT ILLNESS: The patient has an enterococcal urinary tract infection and both blood cultures are growing gram-positive cocci which could well channel turner to be Enterococcus as well. MEDICATIONS: The patient was on vancomycin and cefepime. I have discontinued those 2 antibiotics and placed the patient on ampicillin intravenously. PHYSICAL EXAMINATION: Vital Signs: Temperature is 98.9 degrees, pulse 118, respirations 21, blood pressure 110/73. General: This is an ill-appearing elderly male. He appears to be comatose. HEENT: There is no drainage coming from the nose or ears. Neck: No meningismus. Lungs: Clear to auscultation. Cardiovascular: Heart rate is regular and rapid. Abdomen: Soft and nontender. Thorax: The patient has a right-sided Port-A-Cath in place, the site is slightly swollen. Neurologic: The patient appears to be comatose. He does not respond to verbal stimuli. There is no tremor. LABORATORIES AND RADIOLOGY: A renal ultrasound has been ordered but apparently it has not been done yet. CBC shows a white count of 7790, hemoglobin 10.5, and platelet count is 24,000. Creatinine is 1.6. GFR is 43. As mentioned above the patient's urine is growing Enterococcus and the blood cultures are growing gram-positive cocci which I think could well channel turner to be Enterococcus as well. ASSESSMENT AND PLAN: The patient has an enterococcal urinary tract infection with I think an associated bacteremia. I have discontinued vancomycin and cefepime and have placed the patient on ampicillin. COMORBIDITIES: The patient has metastatic lung cancer. He also has diabetes mellitus, end-stage renal disease and chronic cigarette smoking. cc: MD Henry Gonzalez MD
--- NOTE | 2018-08-29 19:08 | PROGRESS NOTE ---
DATE: 08/29/2018 SUBJECTIVE: A 67-year-old white gentleman. Events noted over the weekend. He is obtunded, agitated, not responding. I appreciate Dr. Silva consult as well as Dr. Dukes. Natalie De La Cruz, his , was at bedside. The patient was septic, probably from a Port-A-Cath and UTI, and he was agitated over the weekend. CT was negative. OBJECTIVE: On exam, he continues to have fever 100. Blood pressure is coming down. Obtunded, not eating and a lot of bruising around the port. Bilateral air entry. Distant heart sounds. Belly is soft nontender. Edema noted. LABORATORY DATA: CBC: White cell count 7, hematocrit 32, platelets 24,000. SMA 7: BUN 58, creatinine 1.6. CT head was negative. Blood cultures are gram-positive cocci. Urine cultures: Enterococcus faecalis. ASSESSMENT: 1. Metastatic small-cell cancer. 2. L1 metastatic disease. 3. Hypertension. 4. Gram-positive bacteremia from infected port. 5. Urinary tract infection due to Enterococcus faecalis. 6. Deconditioning. PLAN OF CARE: Dr. Dukes made her DNR 1 and apparently they talked to the consultants. The patient is leaning towards palliative care and comfort care and also wants to stop the antibiotics, and we will initiate palliative care consult in the morning and comfort care. LEVEL OF DOCUMENTATION: 25 minutes. cc: Henry Robertson MD
[2018-08-29] MEDS ORDERED: VANCOMYCIN 1,450 MG in NS 250 ML IV SCH (20:00)
[2018-08-29] MEDS: LOVENOX SUBQ SCH (20:49)
[2018-08-29] MEDS ORDERED: TYLENOL PR PRN (22:05)
[2018-08-30] MEDS: XANAX PO SCH ×4 (03:49→18:24)
[2018-08-30] MEDS: MOVANTIK PO SCH (06:52)
[2018-08-30] MEDS: CLINIMIX E 4.25%-5% SOLUTION 1,000 ML IV SCH ×2 (06:52→18:22)
[2018-08-30 07:47] LABS: BASO# 0.02 X1000 (0.0-0.2); BASO% 0.2 % (0.0-0.8); HEMOGLOBIN 10.6 g/dL (14.0-18.0); IMM GRAN# 0.08 X1000 (0.0-0.04); IMM GRAN% 0.8 % (0.0-0.5); LYMPH# 0.27 X1000 (1.2-3.4); LYMPH% 2.6 % (20.5-51.1); MCH 28.9 PG (27-31); MCHC 33.1 g/dL (33-37); MCV 87.2 FL (81-99); MONO# 0.55 X1000 (0.11-0.59); MONO% 5.3 % (1.7-9.3); NEUT# 9.42 X1000 (1.4-6.5); NEUT% 91.1 % (42.2-75.2); PLT 24 X1000 (130-400); RBC 3.67 XMIL (4.7-6.1); RDW 15.6 % (11.5-14.5); WBC 10.34 X1000 (4.8-10.8)
[2018-08-30 07:49] LABS: BANDS 6 % (0-1); MONO 2 % (1-9); SEGS 92 % (42-75)
[2018-08-30] MEDS: DILAUDID IV PRN ×2 (08:05→20:26)
[2018-08-30] MEDS: DECADRON IV SCH ×3 (08:10→18:25)
[2018-08-30] MEDS: ULTRACET 37.5MG/325MG PO SCH (18:25)
[2018-08-30] MEDS: TOPROL XL PO SCH ×2 (18:26→18:27)
[2018-08-30] MEDS: MIRALAX PO SCH ×2 (18:28→18:29)
[2018-08-30] MEDS: PEPCID IV SCH (18:28)
[2018-08-30] MEDS ORDERED: ATIVAN IV PRN (19:16)
[2018-08-30] MEDS ORDERED: TRANSDERM-SCOP TD SCH (19:30)
--- NOTE | 2018-08-30 21:29 | PROGRESS NOTE ---
DATE: 08/30/2018 SUBJECTIVE: A 67-year-old white gentleman who was completely obtunded. Family agreeable for comfort care. Appreciated consultants. Will discontinue IV antibiotics. OBJECTIVE: On exam, he has a fever of 102, tachycardic. Blood pressure is low and he is not arousable. He is on oxygen. Bilateral air entry. Distant heart sounds. Not able to follow with verbal commands. CBC: White cell count 10, hematocrit 32, platelets 24,000. ASSESSMENT: 1. Metastatic lung cancer, squamous cell. 2. Methicillin resistant Staphylococcus aureus sepsis. 3. Urinary tract infection. 4. Deconditioning. PLAN OF CARE: 1. Palliative care. 2. Discontinue intravenous fluids. 3. Discontinue intravenous dexamethasone. 4. Discontinue Lovenox. 5. Basically supportive care, oxygen, scopolamine patch, morphine, and Ativan. 6. Living will, Do Not Resuscitate. 7. Family is all at bedside, agreeable, and continue comfort care as directed. Communicated with family as well as the patient's nurse at bedside. LEVEL OF DOCUMENTATION: 25 minutes. cc: Henry Robertson MD
[2018-08-31] MEDS: DILAUDID IV PRN ×7 (00:57→21:19)
[2018-08-31 19:14] VITALS: BP 77/47
--- NOTE | 2018-08-31 21:48 | PROGRESS NOTE ---
DATE: 09/01/2018 SUBJECTIVE: The patient is completely obtunded, tachycardic, tachypneic. Family was at bedside. OBJECTIVE: On exam, his temperature is 97, tachycardic. Blood pressure is low and he is in moribund state. ASSESSMENT AND PLAN: Metastatic lung cancer with MRSE infection. Living will, Do Not Resuscitate. Continue palliative services as described. Waiting for demise. LEVEL OF DOCUMENTATION: 10 minutes. cc: Henry Robertson MD
[2018-09-01] MEDS: DILAUDID IV PRN ×2 (01:11→04:48)
--- NOTE | 2018-09-03 22:51 | DISCHARGE SUMMARY ---
ADMISSION DATE: 08/26/2018 DISCHARGE DATE: 09/01/2018 TIME OF : 6:15 a.m. FINAL DIAGNOSIS: Acute cardiopulmonary arrest due to methicillin-resistant Staphylococcus aureus sepsis from the Port-A-Cath and urinary tract infection, associated with metastatic squamous cell carcinoma from the left upper lobe into the bone metastatic disease. SECONDARY DIAGNOSES: 1. Gallstones. 2. Chronic kidney disease. 3. Diverticulosis. 4. Type 2 diabetes. 5. Hypertension. 6. Gout. 7. Sleep apnea. 8. Psoriatic rash. 9. Vitamin D deficiency. CONSULTS: 1. Dr. Dukes. 2. Dr. Zheng Silva. 3. Dr. Henson. BRIEF HISTORY: Please see the H and P that was done on 08/26/2018. In brief, he is a 67-year-old white male with recently diagnosed metastatic [id number] lung cancer, with metastasis in the bone. Recently finished radiation, doing very well. Just came back with dwindling of activities of daily living. He was not eating well. He was extremely weak. HOSPITAL COURSE: The patient was started on IV fluids, and his hospital course deteriorated with obtundation, agitation. The patient was found to have UTI and MRSA infection in the blood, probably from the infected port. Appropriate consult was obtained to remove the port as well as Dr. Silva consulted by Dr. Fidel Burnett. In the meantime, family decided with DNR level 1. They wanted to withdraw the IV fluids and IV antibiotics. They did not want to do any further aggressive medical care. Palliative Care consult was initiated. At the request of the family the patient was started on oxygen, morphine, Ativan and scopolamine patch. He peacefully on 09/01/2018 at 6:15 a.m. Family was there at the time of demise. The cause of the was due to cardiopulmonary arrest with metastatic [id number] lung cancer with methicillin-resistant Staphylococcus aureus sepsis. cc: Henry Robertson MD
== END 2018-09-01 06:14 | disposition expired | DRG 314 ==
LOC: DIRADM 13:55 → 3N 16:06
PROVIDERS: ADMIT Internal Medicine; ATTEND Internal Medicine
CPT/HCPCS: 70450; 71020; 71046; 80053; 81001; 83605; 85025; 85027; 85651; 87040; 87077; 87088; 87186; 93005; 93010; 94761; A9270; J0610; J0692; J1100; J1170; J1650; J1720; J2358; J3370; J7040; S0028